=== PATIENT | female | born 1955 | race Caucasian/White ===

== ENCOUNTER → 2018-10-15 10:14 | Outpatient (CLI) | payer OTHER, SELFPAY ==
--- NOTE | 2018-10-15 | DI.MG.S_ITS ---
BILATERAL DIGITAL SCREENING MAMMOGRAM 3D/2D WITH CAD: 10/15/2018 CLINICAL: Routine screening. Family history of breast cancer. Comparison is made to exams dated: 05/20/2017 mammogram, 02/12/2014 mammogram, and 11/11/2012 mammogram - [facility]. The tissue of both breasts is heterogeneously dense. This may lower the sensitivity of mammography. Current study was also evaluated with a Computer Aided Detection (CAD) system. There is 1 cm asymmetry in the left breast anterior depth lateral region seen on the craniocaudal view only. No other significant masses, calcifications, or other findings are seen in either breast. IMPRESSION: INCOMPLETE: NEEDS ADDITIONAL IMAGING EVALUATION The 1 cm asymmetry in the left breast is indeterminate. Additional views with possible ultrasound are recommended. This exam was interpreted at Station ID: [id number]. NOTE: For mammograms, a report in lay terms will be sent to the patient. Approximately 15% of breast malignancies will not be visualized mammographically. In the management of a palpable breast mass, a negative mammogram must not discourage biopsy of a clinically suspicious lesion. Electronically Signed By: Carter Sidhu M.D. at/:10/15/2018 11:45:13 letter sent: Additional Imaging Needed ACR BI-RADS Category 0: Incomplete 3340F
== END ==
PROVIDERS: PCP Naturopath; Visit Provider Naturopath
DX: Z12.31 Encounter for screening mammogram for malignant neoplasm of breast (principal); Z80.3 Family history of malignant neoplasm of breast
CPT/HCPCS: 77063; 77067

== ENCOUNTER → 2018-11-10 09:24 | Outpatient (CLI) | payer OTHER, SELFPAY ==
--- NOTE | 2018-11-10 | DI.MG.S_ITS ---
UNILATERAL LEFT DIGITAL DIAGNOSTIC MAMMOGRAM 3D/2D WITH ADDITIONAL VIEWS: 11/10/2018 CLINICAL: Additional evaluation requested from prior study. Comparison is made to exams dated: 10/15/2018 mammogram, 05/20/2017 mammogram, and 02/12/2014 mammogram - [facility]. The tissue of left breast is heterogeneously dense. This may lower the sensitivity of mammography. The benign 1 cm asymmetry in the left breast anterior depth lateral region seen on the craniocaudal view only is no longer seen on additional views. This is consistent with summation artifact. No other significant masses or calcifications are seen in the breast. IMPRESSION: There is no mammographic evidence of malignancy. A 1 year screening mammogram is recommended. This exam was interpreted at Station ID: [id number]. NOTE: For mammograms, a report in lay terms will be sent to the patient. Approximately 15% of breast malignancies will not be visualized mammographically. In the management of a palpable breast mass, a negative mammogram must not discourage biopsy of a clinically suspicious lesion. Electronically Signed By: Carter yuen/:11/10/2018 10:22:31 letter sent: Normal Exam ACR BI-RADS Category 2: Benign Finding(s) 3342F
== END ==
PROVIDERS: PCP Naturopath; Visit Provider Naturopath
DX: R92.8 Other abnormal and inconclusive findings on diagnostic imaging of breast (principal)
CPT/HCPCS: 77065; G0279

== ENCOUNTER → 2019-07-20 08:06 | Outpatient (CLI) | payer OTHER, SELFPAY ==
--- NOTE | 2019-07-20 | DI.MG.S_ITS ---
BILATERAL DIGITAL DIAGNOSTIC MAMMOGRAM 3D/2D: 07/20/2019 CLINICAL: Bilateral breast pain. Comparison is made to exams dated: 10/15/2018 mammogram, 05/20/2017 mammogram, 02/12/2014 mammogram, 11/10/2018 mammogram, and 11/11/2012 mammogram - [facility]. There are scattered fibroglandular elements in both breasts. Diffuse bilateral breast pain for 2 months duration. No significant masses, calcifications, or other findings are seen in either breast. IMPRESSION: NEGATIVE There is no mammographic evidence of malignancy. No abnormality to correspond to diffuse bilateral breast pain. Return to annual mammogram screening schedule is recommended. Results were conveyed to the patient by the registered sales assistant. This exam was interpreted at Station ID: [id number]. NOTE: For mammograms, a report in lay terms will be sent to the patient. Approximately 15% of breast malignancies will not be visualized mammographically. In the management of a palpable breast mass, a negative mammogram must not discourage biopsy of a clinically suspicious lesion. Electronically Signed By: Juliano Mitchell M.D. slc/:07/20/2019 08:48:55 letter sent: Normal Exam ACR BI-RADS Category 1: Negative 3341F
== END ==
PROVIDERS: PCP Naturopath; Visit Provider Naturopath
DX: N64.4 Mastodynia (principal)
CPT/HCPCS: 77066; G0279

== ENCOUNTER 2019-09-09 15:42 | Emergency (ER) | payer OTHER, SELFPAY ==
[2019-09-09 15:46] VITALS: BP 177/93; PULSE 68; RESP 16; TEMP 36.6; O2SAT 100
[2019-09-09] MEDS: SODIUM CHLORIDE 0.9% 1,000 ML 1000 ML IV (16:10)
[2019-09-09] MEDS: ONDANSETRON 4 MG/2 ML INJ IV (16:11)
[2019-09-09] MEDS: KETOROLAC 60 MG/2 ML VIAL 30 MG IV (16:11)
[2019-09-09 16:15] LABS: Add Manual Diff / Slide Review NO; Basophils Absolute Auto 100 /uL (0-100); Basophils Percent Auto 0.7 % (0-2); Eosinophils Absolute Auto 300 /uL (0-450); Eosinophils Percent Auto 2.9 % (2-4); Hematocrit 43.3 % (36-46); Hemoglobin 14.9 g/dL (12.0-16.0); Lymphocytes Absolute Auto 3300 /uL (1100-4500); Lymphocytes Percent Auto 38.7 % (25-40); Mean Corpuscular HGB Conc 34.5 % (30-36); Mean Corpuscular Hemoglobin 30.3 PG (26-34); Mean Corpuscular Volume 87.9 fL (80-100); Monocytes Absolute Auto 700 /uL (0-900); Monocytes Percent Auto 8.3 % (3-14); Neutrophils Absolute Auto 4300 /uL (1500-7000); Neutrophils Percent Auto 49.4 % (50-75); Platelet Count 229 X10^3/uL (150-400); Red Blood Cell Count 4.92 X10^6/uL (4.0-5.2); Red Cell Distribution Width 13.1 % (11.6-14.8); White Blood Cell Count 8.6 X10^3/uL (4.5-11.0)
[2019-09-09 16:33] LABS: Alanine Aminotransferase 41 IU/L (<35); Albumin 4.8 g/dL (3.5-5.0); Albumin Globulin Ratio 1.4 (1.0-2.8); Alkaline Phosphatase 95 U/L (38-126); Aspartate Aminotransferase 30 IU/L (14-36); BUN Creatinine Ratio 28.8 (6-22); Bilirubin Total 0.9 mg/dL (0.2-1.3); Blood Urea Nitrogen 23 mg/dL (7-17); Carbon Dioxide 26 mmol/L (22-32); Chloride 102 mmol/L (98-107); Estimated Glomerular Filt Rate > 60.0 mL/min (>60); Globulin 3.4 g/dL (1.7-4.1); Glucose 123 mg/dL (80-110); HEMOLYSIS < 15 (0-50); Sodium 139 mmol/L (137-145); Total Protein 8.2 g/dL (6.3-8.2)
[2019-09-09 17:52] VITALS: BP 132/72; PULSE 88; RESP 18; O2SAT 98
--- NOTE | 2019-09-09 18:13 | DI.CT.S_ITS ---
PROCEDURE: CT KIDNEY URETER BLADDER (KUB) INDICATIONS: left flank pain similar to previous kidney stone TECHNIQUE: Noncontrast 5 mm thick sections acquired from the diaphragms to the symphysis. 5 mm thick coronal and sagittal reformats were then performed. For radiation dose reduction, the following was used: automated exposure control, adjustment of mA and/or kV according to patient size. COMPARISON: None. FINDINGS: Image quality: Excellent. Lung bases: Lung bases are clear. Heart size is normal. Urinary system: The right kidney is normal size. No hydronephrosis, nephrolithiasis, hydroureter, or ureterolithiasis. There is mild left hydronephrosis and perinephric fat stranding. A 4 mm nonobstructing stone is present within the left kidney. The ureter is moderately dilated throughout its course with perinephric fat stranding. A 7 mm diameter calculus is present within the distal left ureter (series 2, image 72). The bladder is thin walled. No bladder calculi. The uterus is not visualized and may be surgically absent. The left ovary is not visualized. The right ovary is present with a low density 3.0 cm diameter cyst present. Other solid organs: Liver is normal in size. Gallbladder is surgically absent. Pancreas is normal in contours. Spleen is normal in size. No adrenal nodules. Peritoneum and bowel: Unenhanced bowel loops demonstrate normal wall thickness and caliber. The appendix is not visualized; however there is no discrete right lower quadrant fluid or fat stranding to suggest acute appendicitis. No free fluid or air. Nodes and vessels: No retroperitoneal or mesenteric adenopathy by size criteria. Aorta and inferior vena cava are normal in caliber. Abdominal wall: No ventral hernias. Pelvis: No free pelvic fluid. No inguinal hernias or adenopathy. Bones: No suspicious bony lesions. No vertebral body compression fractures. IMPRESSION: 1. Obstructive left distal ureterolithiasis as above with mild left hydronephrosis and perinephric fat stranding. 2. Nonobstructing left nephrolithiasis. These findings were discussed with Dr. Martinez at 7:13 PM on 09/09/19. Dictated by: Urszula Garg M.D. on 09/09/2019 at 19:10 Approved by: Urszula Garg M.D. on 09/09/2019 at 19:14
[2019-09-09 18:20] VITALS: BP 147/76; PULSE 74; RESP 18; O2SAT 97
[2019-09-09 18:26] LABS: Amorphous Sediment Urine 1+; Bacteria Urine Few (2-10); Culture Indicated Urine Specimen Cultured; Mucus Urine 1+ (Negative); RBC Urine 10-30/HPF (0-5/HPF); Squamous Epithelial Cell Urine 0-1 /HPF (0-5/HPF); Transitional Epi Cells Urine 0-1/HPF (0-5/HPF); WBC Urine 5-10/HPF (0-5/HPF)
[2019-09-09 18:57] VITALS: BP 144/71; PULSE 77; RESP 16; O2SAT 99
--- NOTE | 2019-09-09 20:58 | ED_ITS ---
HPI - Abdominal Pain General Chief Complaint: Abdominal Pain Stated Complaint: states kidney stone Time Seen by Provider: 09/09/19 17:54 Source: patient Mode of arrival: Ambulatory History of Present Illness HPI narrative: The patient is a 64-year-old female who has a past history of kidney stones. She presented to the emergency department with left flank pain that felt identical to her previous kidney stones. The pain is intermittently dull achy and sharp at times. She 1st developed pain on Saturday which was intense but then it resolved on its own. She redeveloped pain on Saturday night which again resolved. Today the patient redeveloped the pain and discomfort. She denies any fever chills or sweats. She denies any other abdominal pain. She has had no chest pain cough shortness of breath difficulty in breathing dizziness or palpitations. She has had no nausea or vomiting at this time. She denies any dysuria urinary frequency or urgency or signs of infection. Related Data Previous Rx's Medication Instructions Recorded metronidazole [MetroCream] 1 jeffrey TOPICAL QDAY #45 gm 02/04/17 ondansetron HCl [Zofran] 4 mg PO Q8H PRN #10 tab 09/09/19 oxycodone-acetaminophen [Percocet] 1 tab PO Q6H PRN #10 tab 09/09/19 Allergies Allergy/AdvReac Type Severity Reaction Status Date / Time epinephrine AdvReac Unknown INCREASED Verified 09/09/19 16:07 HEART RATE Review of Systems Review of Systems Narrative: All review of systems were negative except for those mentioned in the history of present illness. Patient History Surgical History Status post appendectomy Status post delivery Status post cholecystectomy (09/15/03) Status post hysterectomy Family History Brother Age: 70 Heart disease Pacemaker Mother Hypertension High cholesterol Social History other: The patient does not smoke cigarettes or chew tobacco drink alcohol or use Exam Narrative Exam Narrative: PHYSICAL EXAM: CONSTITUTIONAL: Awake, Alert, Oriented, Coherent, Cooperative in NAD after being administered Toradol. . Does not appear toxic or ill. HEAD: AT/NC EENT: PERRL, FROM of eyes, no discharge. No epistaxis or nasal drainage Oral mucosa is moist and pink, posterior pharynx is without erythema or exudate. NECK: Supple, no obvious JVD, Trachea is midline without stridor, no palpable LN or masses. SPINE: No gross deformity, no palpable tenderness of the cervical, thoracic, lumbar or sacral spine. Mild minimal left costovertebral angle tenderness. No right costovertebral angle tenderness. THORAX: No deformity, retractions, chest wall tenderness, LUNGS: Clear with symmetrical breath sounds without respiratory distress HEART: Normal heart tones, regular rhythm and rate without murmur. ABDOMEN: Soft, non-tender, normal bowel sounds without guarding, rebound, rigidity or palpable mass or organomegaly. EXTREMITIES: No edema, cyanosis, deformity or tenderness. SKIN: No rash, bruising, petechiae or purpura. NEURO: Awake, alert, oriented, conversive, cranial nerves II-XII are symmetrical and normal, moves all 4 extremities and is ambulatory Initial Vital Signs Initial Vital Signs: Vital Signs Temperature 97.9 F 09/09/19 15:46 Pulse Rate 68 09/09/19 15:46 Respiratory Rate 16 09/09/19 15:46 Blood Pressure 177/93 H 09/09/19 15:46 Pulse Oximetry 100 09/09/19 15:46 Course Orders Ordered: ED Orders 09/09/19 16:05 Complete Blood Count AUTO DIFF Stat Comprehensive Metabolic Panel Stat 09/09/19 18:06 Urine Culture Stat Urine Microscopic Stat 09/09/19 18:13 CT kidney ureter bladder (KUB) Stat Discontinued Medications Sodium Chloride (Normal Saline 0.9%) 1,000 mls @ 1,000 mls/hr IV BOLUS ONE Stop: 09/09/19 16:51 Last Infusion: 09/09/19 17:49 Dose: 0 mls/hr Documented by: Admin: 09/09/19 16:10 Dose: 1,000 mls/hr Documented by: RUSLAN Ketorolac Tromethamine (Toradol) 30 mg IV NOW ONE Stop: 09/09/19 15:53 Last Admin: 09/09/19 16:11 Dose: 30 mg Documented by: RUSLAN Ondansetron HCl (Zofran) 4 mg IV NOW ONE Stop: 09/09/19 15:53 Last Admin: 01/22/20 16:11 Dose: 4 mg Documented by: RUSLAN Ondansetron HCl (Zofran Odt Prepack) 1 bottle MISC SEEINSTR ONE Stop: 09/09/19 22:22 Last Admin: 09/09/19 22:27 Dose: 1 bottle Documented by: GEORGE Oxycodone/Acetaminophen (Endocet 5/325 Prepack) 1 bottle MISC SEEINSTR ONE Stop: 09/09/19 22:22 Last Admin: 09/09/19 22:27 Dose: 1 bottle Documented by: GEORGE Reevaluation(s) Reevaluation #1: The patient has been pain-free ever since she has been administered Toradol. CT scan reveals that she has mild left hydronephrosis. She has a 7 mm ureteral stone that is partially obstructing. [facility] was called to discuss the patient and arrange follow-up for the patient. Time: 20:58 Vital Signs Vital signs: Vital Signs - 8 hr 09/09/19 15:46 09/09/19 17:52 09/09/19 18:20 Temperature 97.9 F Pulse Rate 68 88 74 Respiratory Rate 16 18 18 Blood Pressure 177/93 H Blood Pressure [Left Arm] 132/72 147/76 H Pulse Oximetry 100 98 97 09/09/19 18:57 09/09/19 22:33 Temperature Pulse Rate 77 62 Respiratory Rate 16 14 Blood Pressure 134/75 Blood Pressure [Left Arm] 144/71 H Pulse Oximetry 99 99 MDM - Abdominal Pain Lab Data Attestation: I reviewed the patient's lab results. Result diagrams: 09/09/19 16:05 09/09/19 16:05 Labs: Lab Results 09/09/19 09/09/19 09/09/19 Range/Units 16:05 16:05 18:06 WBC 8.6 (4.5-11.0) X10^3/uL RBC 4.92 (4.0-5.2) X10^6/uL Hgb 14.9 (12.0-16.0) g/dL Hct 43.3 (36-46) % MCV 87.9 (80-100) fL MCH 30.3 (26-34) PG MCHC 34.5 (30-36) % RDW 13.1 (11.6-14.8) % Plt Count 229 (150-400) X10^3/uL Neut % (Auto) 49.4 L (50-75) % Lymph % (Auto) 38.7 (25-40) % [place] % (Auto) 8.3 (3-14) % Eos % (Auto) 2.9 (2-4) % Baso % (Auto) 0.7 (0-2) % Neut # (Auto) 4300 (9726-6830) /uL Lymph # (Auto) 3300 (2967-0059) /uL [place] # (Auto) 700 (0-900) /uL Eos # (Auto) 300 (0-450) /uL Baso # (Auto) 100 (0-100) /uL Sodium 139 (137-145) mmol/L Potassium 4.0 (3.4-5.1) mmol/L Chloride 102 (98-107) mmol/L Carbon Dioxide 26 (22-32) mmol/L BUN 23 H (7-17) mg/dL Creatinine 0.80 (0.52-1.04) mg/dL Estimated GFR > 60.0 (>60) mL/min BUN/Creatinine Ratio 28.8 H (6-22) Glucose 123 H (80-110) mg/dL Calcium 10.0 (8.4-10.2) mg/dL Total Bilirubin 0.9 (0.2-1.3) mg/dL AST 30 (14-36) IU/L ALT 41 H (<35) IU/L Alkaline Phosphatase 95 (38-126) U/L Total Protein 8.2 (6.3-8.2) g/dL Albumin 4.8 (3.5-5.0) g/dL Globulin 3.4 (1.7-4.1) g/dL Albumin/Globulin Ratio 1.4 (1.0-2.8) Urine RBC 10-30/hpf H (0-5/HPF) Urine WBC 5-10/hpf H (0-5/HPF) Ur Squamous Epith Cells 0-1 /hpf (0-5/HPF) Ur Transition Epith Cell 0-1/hpf (0-5/HPF) Amorphous Sediment 1+ Urine Bacteria Few (2-10) H (None) Urine Mucus 1+ H (Negative) Ur Culture Indicated? Specimen cultured Point of care testing: Urine Dip Bedside Urine Glucose Negative Bedside Urine Bilirubin - Negative Bedside Urine Ketone +/- 5 Urine Specific [place] 1.015 Bedside Urine Occult Blood +++ Bedside Urine pH 7.5 Bedside Urine Protein - Negative Bedside Urine Urobilinogen - Negative Bedside Urine Nitrite - Negative Bedside Urine Leukocytes +/- 15 Esterase MDM Narrative Medical decision making narrative: The patient's CT scan revealed that she had a 7 mm stone with partial obstruction in mild hydronephrosis. A call was placed into Dr. Patel, urologist at [facility]. I discussed the situation with the patient and her and it was decided to discharge her home on Percocet 7.5/325,1 tablet Q 6 hours as needed for severe pain and discomfort. She was advised to return to the emergency department if she develops worsening pain, pain unrelieved by the pain medication, persistent nausea and vomiting fever. Discharge Plan Departure Patient Disposition: Home Clinical Impression: Acute left flank pain, Ureterolithiasis, Ureteral colic Discharge Date/Time: 09/09/19 22:32 Instructions: DI for Kidney Stones, DI for Abdominal Pain-Adult Activity Restrictions/Additional Instructions: If you developed nausea and vomiting use Zofran as prescribed. If you develops recurring abdominal pain take the Percocet for your pain and discomfort. If the Percocet does not control your pain and discomfort return to the emergency department. If you developed fever chills sweats uncontrollable nausea and vomiting dizziness or passing-out you need to return to the emergency department Prescriptions: New oxycodone-acetaminophen [Percocet] 7.5-325 mg tablet 1 tab PO Q6H PRN (Reason: pain) Qty: 10 RF: 0 ondansetron HCl [Zofran] 4 mg tablet 4 mg PO Q8H PRN (Reason: nausea and vomiting) Qty: 10 RF: 0 No Action metronidazole [MetroCream] 0.75 % cream 1 jeffrey Topical QDAY Qty: 45 RF: 0 Referrals: Deisy Cam ND [Primary Care Provider] - Alen Patel MD [Non-Staff] - (Call his office for follow-up for kidney stone.)
[2019-09-09] MEDS: OXYCODONE/APAP 5/325 PREPACK 1 BOTTLE MISC (22:27)
[2019-09-09] MEDS: ONDANSETRON 4 MG ODT PREPACK 1 BOTTLE MISC (22:27)
[2019-09-09 22:33] VITALS: BP 134/75; PULSE 62; RESP 14; O2SAT 99
== END 2019-09-09 22:32 | disposition home or self-care (01) ==
PROVIDERS: Emergency Medicine; Emergency Provider Emergency Medicine; PCP Naturopath
DX: N20.1 Calculus of ureter (principal); Z87.442 Personal history of urinary calculi; N23 Unspecified renal colic
CPT/HCPCS: 36415; 74176; 80053; 81003; 81015; 85025; 87086; 96361; 96374; 96375; 99284; J1885; J2405

== ENCOUNTER 2019-09-14 17:55 | Emergency (ER) | payer OTHER, SELFPAY ==
[2019-09-14 18:00] VITALS: BP 121/73; PULSE 72; RESP 16; TEMP 36.2; O2SAT 100
[2019-09-14] MEDS: ONDANSETRON 4 MG/2 ML INJ IV (18:50)
[2019-09-14] MEDS: KETOROLAC 60 MG/2 ML VIAL 30 MG IV (18:50)
[2019-09-14] MEDS: SODIUM CHLORIDE 0.9% 1,000 ML 500 ML IV (18:51)
[2019-09-14 18:52] VITALS: BP 133/66; PULSE 80; RESP 18; O2SAT 98
[2019-09-14 19:06] LABS: Add Manual Diff / Slide Review NO; Basophils Absolute Auto 200 /uL (0-100); Eosinophils Absolute Auto 400 /uL (0-450); Eosinophils Percent Auto 3.4 % (2-4); Hematocrit 43.7 % (36-46); Hemoglobin 14.9 g/dL (12.0-16.0); Lymphocytes Absolute Auto 3200 /uL (1100-4500); Mean Corpuscular HGB Conc 34.2 % (30-36); Mean Corpuscular Hemoglobin 29.9 PG (26-34); Mean Corpuscular Volume 87.5 fL (80-100); Monocytes Absolute Auto 1100 /uL (0-900); Monocytes Percent Auto 9.6 % (3-14); Neutrophils Absolute Auto 6800 /uL (1500-7000); Platelet Count 256 X10^3/uL (150-400); Red Blood Cell Count 4.99 X10^6/uL (4.0-5.2); Red Cell Distribution Width 13.2 % (11.6-14.8); White Blood Cell Count 11.7 X10^3/uL (4.5-11.0)
[2019-09-14 19:08] LABS: Prothrombin Time 11.1 SECONDS (10.1-12.7)
[2019-09-14 19:10] LABS: PTT Partial Thromboplastin Tim 29 SECONDS (26.4-36.2)
[2019-09-14 19:28] LABS: Alanine Aminotransferase 31 IU/L (<35); Albumin 4.5 g/dL (3.5-5.0); Albumin Globulin Ratio 1.5 (1.0-2.8); Alkaline Phosphatase 81 U/L (38-126); BUN Creatinine Ratio 15.6 (6-22); Bilirubin Total 0.9 mg/dL (0.2-1.3); Blood Urea Nitrogen 14 mg/dL (7-17); Calcium 10.4 mg/dL (8.4-10.2); Carbon Dioxide 23 mmol/L (22-32); Chloride 103 mmol/L (98-107); Estimated Glomerular Filt Rate > 60.0 mL/min (>60); Globulin 3.1 g/dL (1.7-4.1); Glucose 128 mg/dL (80-110); Lipase 159 U/L (23-300); Sodium 138 mmol/L (137-145); Total Protein 7.6 g/dL (6.3-8.2)
[2019-09-14 19:32] LABS: HEMOLYSIS 117 (0-50)
--- NOTE | 2019-09-14 19:36 | ED_ITS ---
HPI - General Adult General Chief complaint: Abdominal Pain Stated complaint: KIDNEY STONE PAIN 10 Time Seen by Provider: 09/14/19 19:19 Source: patient Mode of arrival: Ambulatory Limitations: no limitations History of Present Illness HPI narrative: Patient is a 64-year-old female who was seen here in the emergency department just a few days ago was diagnosed with a distal 7 mm left- sided ureteral stone. Was sent home with pain medication and nausea medication. According to the note a couple days ago the evaluating provider talked with local Urology about a follow-up as an outpatient. Patient states that she has not followed up with them. She states that it was under her understanding during her last visit that she needed admitted to the hospital however there was no bed availability so she was discharged home. She states she has not taking any of the pain or nausea medication that she was given at that time until today because the pain got worse. No fevers. Related Data Home Medications Medication Instructions Recorded Confirmed metronidazole [MetroCream] 1 jeffrey TOPICAL DAILY 09/14/19 09/14/19 Previous Rx's Medication Instructions Recorded ondansetron HCl [Zofran] 4 mg PO Q8H PRN #10 tab 09/09/19 oxycodone-acetaminophen [Percocet] 1 tab PO Q6H PRN #10 tab 09/09/19 tamsulosin [Flomax] 0.4 mg PO DAILY #14 cap 09/14/19 Allergies Allergy/AdvReac Type Severity Reaction Status Date / Time epinephrine AdvReac Unknown INCREASED Verified 09/09/19 16:07 HEART RATE Review of Systems Constitutional Constitutional: Denies fever(s) Cardiovascular Cardiovascular: Denies chest pain and Denies dyspnea Respiratory Respiratory: Denies dyspnea Gastrointestinal Gastrointestinal: Reports abdominal pain, Reports nausea and Denies vomiting Integumentary/Breasts Skin/Breast: Denies lesions and Denies rash Neurologic Neurologic: Denies behavioral changes Psychiatric Psychiatric: Denies behavioral changes Hematologic/Lymphatic Hematologic/Lymphatic: Denies easy bleeding and Denies easy bruising Patient History Medical History Hyperlipidemia (11/02/14) Rosacea (10/20/14) Surgical History Status post appendectomy Status post delivery Status post cholecystectomy (09/15/03) Status post hysterectomy Social History other: The patient does not smoke cigarettes or chew tobacco drink alcohol or use Exam Initial Vital Signs Initial Vital Signs: Vital Signs Temperature 97.2 F L 09/14/19 18:00 Pulse Rate 72 09/14/19 18:00 Respiratory Rate 16 09/14/19 18:00 Blood Pressure 121/73 09/14/19 18:00 Pulse Oximetry 100 09/14/19 18:00 Const General: cooperative and comfortable Limitations: mental status not altered HENMT Head: normal to inspection and normocephalic Resp Effort & Inspection: normal respiratory effort Cardio Rate: regular rate GI Inspection: non-distended Skin Lesions: no lesions Rashes: no rashes Neuro General: alert and awake Cognition: normal cognition Speech: speech normal Extrem General: normal to inspection and No edema Course Orders Ordered: ED Orders 09/14/19 18:55 Complete Blood Count AUTO DIFF Stat Comprehensive Metabolic Panel Stat Lipase Stat Partial Thromboplastin Time Stat Prothrombin Time INR Stat 09/14/19 19:09 Urine Microscopic Stat Discontinued Medications Sodium Chloride (Normal Saline 0.9%) 1,000 mls @ 500 mls/hr IV BOLUS ONE Stop: 09/14/19 20:45 Last Infusion: 09/14/19 20:23 Dose: 0 mls/hr Documented by: Infusion: 09/14/19 19:50 Dose: 1,000 mls/hr Documented by: Admin: 09/14/19 18:51 Dose: 500 mls/hr Documented by: RUSLAN Ketorolac Tromethamine (Toradol) 30 mg IV NOW ONE Stop: 09/14/19 18:48 Last Admin: 09/14/19 18:50 Dose: 30 mg Documented by: RUSLAN Ondansetron HCl (Zofran) 4 mg IV NOW ONE Stop: 09/14/19 18:46 Last Admin: 09/14/19 18:50 Dose: 4 mg Documented by: RUSLAN Vital Signs Vital signs: Vital Signs - 8 hr 09/14/19 18:00 09/14/19 18:52 09/14/19 20:54 Temperature 97.2 F L Pulse Rate 72 80 62 Respiratory Rate 16 18 16 Blood Pressure 121/73 Blood Pressure [Right Arm] 133/66 122/78 Pulse Oximetry 100 98 99 Medical Decision Making Lab Data Lab results reviewed: Yes I reviewed the patient's lab results. Result diagrams: 09/14/19 18:55 09/14/19 18:55 Labs: Lab Results 09/14/19 09/14/19 09/14/19 Range/Units 18:55 18:55 18:55 WBC 11.7 H (4.5-11.0) X10^3/uL RBC 4.99 (4.0-5.2) X10^6/uL Hgb 14.9 (12.0-16.0) g/dL Hct 43.7 (36-46) % MCV 87.5 (80-100) fL MCH 29.9 (26-34) PG MCHC 34.2 (30-36) % RDW 13.2 (11.6-14.8) % Plt Count 256 (150-400) X10^3/uL Neut % (Auto) 58.0 (50-75) % Lymph % (Auto) 27.0 (25-40) % [place] % (Auto) 9.6 (3-14) % Eos % (Auto) 3.4 (2-4) % Baso % (Auto) 2.0 (0-2) % Neut # (Auto) 6800 (3327-6695) /uL Lymph # (Auto) 3200 (3511-3396) /uL [place] # (Auto) 1100 H (0-900) /uL Eos # (Auto) 400 (0-450) /uL Baso # (Auto) 200 H (0-100) /uL PT 11.1 (10.1-12.7) SECONDS INR 1.0 (0.9-1.3) APTT 29 (26.4-36.2) SECONDS Sodium 138 (137-145) mmol/L Potassium TNP Chloride 103 (98-107) mmol/L Carbon Dioxide 23 (22-32) mmol/L BUN 14 (7-17) mg/dL Creatinine 0.90 (0.52-1.04) mg/dL Estimated GFR > 60.0 (>60) mL/min BUN/Creatinine Ratio 15.6 (6-22) Glucose 128 H (80-110) mg/dL Calcium 10.4 H (8.4-10.2) mg/dL Total Bilirubin 0.9 (0.2-1.3) mg/dL AST TNP ALT 31 (<35) IU/L Alkaline Phosphatase 81 (38-126) U/L Total Protein 7.6 (6.3-8.2) g/dL Albumin 4.5 (3.5-5.0) g/dL Globulin 3.1 (1.7-4.1) g/dL Albumin/Globulin Ratio 1.5 (1.0-2.8) Lipase 159 (23-300) U/L Urine RBC (0-5/HPF) Urine WBC (0-5/HPF) Ur Squamous Epith Cells (0-5/HPF) Urine Bacteria (None) Ur Culture Indicated? Micro UA Comment 09/14/19 Range/Units 19:09 WBC (4.5-11.0) X10^3/uL RBC (4.0-5.2) X10^6/uL Hgb (12.0-16.0) g/dL Hct (36-46) % MCV (80-100) fL MCH (26-34) PG MCHC (30-36) % RDW (11.6-14.8) % Plt Count (150-400) X10^3/uL Neut % (Auto) (50-75) % Lymph % (Auto) (25-40) % [place] % (Auto) (3-14) % Eos % (Auto) (2-4) % Baso % (Auto) (0-2) % Neut # (Auto) (1510-5683) /uL Lymph # (Auto) (0750-6301) /uL [place] # (Auto) (0-900) /uL Eos # (Auto) (0-450) /uL Baso # (Auto) (0-100) /uL PT (10.1-12.7) SECONDS INR (0.9-1.3) APTT (26.4-36.2) SECONDS Sodium (137-145) mmol/L Potassium Chloride (98-107) mmol/L Carbon Dioxide (22-32) mmol/L BUN (7-17) mg/dL Creatinine (0.52-1.04) mg/dL Estimated GFR (>60) mL/min BUN/Creatinine Ratio (6-22) Glucose (80-110) mg/dL Calcium (8.4-10.2) mg/dL Total Bilirubin (0.2-1.3) mg/dL AST ALT (<35) IU/L Alkaline Phosphatase (38-126) U/L Total Protein (6.3-8.2) g/dL Albumin (3.5-5.0) g/dL Globulin (1.7-4.1) g/dL Albumin/Globulin Ratio (1.0-2.8) Lipase (23-300) U/L Urine RBC None seen (0-5/HPF) Urine WBC 0-1/hpf (0-5/HPF) Ur Squamous Epith Cells 0-1 /hpf (0-5/HPF) Urine Bacteria None seen (None) Ur Culture Indicated? Cult not indicated Micro UA Comment Microscopic normal Urine Dip Bedside Urine Glucose Negative Bedside Urine Bilirubin - Negative Bedside Urine Ketone - Negative Urine Specific [place] 1.010 Bedside Urine Occult Blood + Bedside Urine pH 8.0 Bedside Urine Protein - Negative Bedside Urine Urobilinogen - Negative Bedside Urine Nitrite - Negative Bedside Urine Leukocytes +/- 15 Esterase Point of care testing: Urine Dip Bedside Urine Glucose Negative Bedside Urine Bilirubin - Negative Bedside Urine Ketone - Negative Urine Specific [place] 1.010 Bedside Urine Occult Blood + Bedside Urine pH 8.0 Bedside Urine Protein - Negative Bedside Urine Urobilinogen - Negative Bedside Urine Nitrite - Negative Bedside Urine Leukocytes +/- 15 Esterase MDM Narrative Medical decision making narrative: Patient has a known left-sided ureteral stone. Her creatinine today is unremarkable. She has no signs of a urinary tract infection. Has not taken any of her pain medication at home until today. Review of the patient's no did show a 7 mm left-sided obstructing ureteral stone. Patient has not been vomiting here in the ER. Given the size of the stone will start her on Flomax. I feel that she does not need emergent urologic consultation. She was given the phone number for the local urology group. She was given return precautions and follow-up instructions. I do believe that the patient thought that her visit today would result and admission to the hospital for this however tried to inform them that given her clinical presentation that Urology would likely allow her to try to pass the stone on her own. Patient is nontoxic appearing. Is not septic. We did discuss return precautions. She expressed understanding. Discharge Plan Departure Patient Disposition: Home Clinical Impression: Renal colic on left side Discharge Date/Time: 09/14/19 20:55 Instructions: DI for Kidney Stones Activity Restrictions/Additional Instructions: Take all the medications as directed. Recommend tomorrow you call the [facility] roberto group at [phone]. Return to the emergency department for any new or worsening symptoms Prescriptions: New tamsulosin [Flomax] 0.4 mg capsule 0.4 mg PO DAILY Qty: 14 RF: 0 No Action metronidazole [MetroCream] 0.75 % cream 1 jeffrey Topical DAILY RF: 0 oxycodone-acetaminophen [Percocet] 7.5-325 mg tablet 1 tab PO Q6H PRN (Reason: pain) Qty: 10 RF: 0 ondansetron HCl [Zofran] 4 mg tablet 4 mg PO Q8H PRN (Reason: nausea and vomiting) Qty: 10 RF: 0 Referrals: Deisy Cam ND [Primary Care Provider] -
[2019-09-14 19:52] LABS: Bacteria Urine None Seen; RBC Urine None Seen (0-5/HPF)
[2019-09-14 19:59] LABS: Culture Indicated Urine Cult Not Indicated; Squamous Epithelial Cell Urine 0-1 /HPF (0-5/HPF); Urine Comments Microscopic Normal; WBC Urine 0-1/HPF (0-5/HPF)
[2019-09-14 20:54] VITALS: BP 122/78; PULSE 62; RESP 16; O2SAT 99
== END 2019-09-14 20:55 | disposition home or self-care (01) ==
PROVIDERS: Emergency Provider Emergency Medicine; PCP Naturopath
DX: N23 Unspecified renal colic (principal); Z87.442 Personal history of urinary calculi
CPT/HCPCS: 80053; 81003; 81015; 83690; 85025; 85610; 85730; 96361; 96374; 96375; 99284; J1885; J2405

== ENCOUNTER 2019-09-27 15:14 | Emergency (ER) | payer OTHER, SELFPAY ==
[2019-09-27 15:26] VITALS: BP 146/79; PULSE 66; RESP 16; TEMP 36.8; O2SAT 96
--- NOTE | 2019-09-27 16:34 | ED_ITS ---
HPI - Extremity Injury (Upper) <HARMEET Andrade - Last Filed: 09/27/19 21:22> General Chief Complaint: Extremity Injury, Upper Stated Complaint: Both Arm and Juggular Vein Pain Time Seen by Provider: 09/27/19 16:13 Source: patient Mode of arrival: Ambulatory History of Present Illness HPI narrative: 64yo female presents to the emergency department complaining of bilateral arm pain that radiates up to her. She states she was in the emergency department on 09/09 and 09/14 and treated for renal calculi. Patient states she had multiple IV starts some were successful and some were not. Patient states 3 days ago she developed a right-sided aching in her arm in her antecubital area, she states this is exactly where they struck my IV the pain subsided the next day but today it has worsened and her left arm is aching where she was stuck for a blood draw. He states it occasionally radiates up her neck. The pain is worse when she moves her arms and particularly bends her elbows. She denies any alleviating factors. She denies any other symptoms such as chest pain, shortness of breath, dizziness, nausea, vomiting, diarrhea, or other concerns. She states she still has some minor pain from her kidney stone but this is getting better. Related Data Home Medications Medication Instructions Recorded Confirmed metronidazole [MetroCream] 1 jeffrey TOPICAL DAILY 09/14/19 09/14/19 Previous Rx's Medication Instructions Recorded ondansetron HCl [Zofran] 4 mg PO Q8H PRN #10 tab 09/09/19 oxycodone-acetaminophen [Percocet] 1 tab PO Q6H PRN #10 tab 09/09/19 tamsulosin [Flomax] 0.4 mg PO DAILY #14 cap 09/14/19 Allergies Allergy/AdvReac Type Severity Reaction Status Date / Time epinephrine AdvReac Unknown INCREASED Verified 09/09/19 16:07 HEART RATE Review of Systems <HARMEET Andrade - Last Filed: 09/27/19 21:22> Review of Systems Narrative: REVIEW OF SYSTEMS: GENERAL: Denies fever or chills. HENT: No head trauma. EYES: No double vision or vision loss. CARDIOVASCULAR: No chest pain or syncope. RESPIRATORY: No shortness of breath or cough. GASTROINTESTINAL: No nausea, vomiting, diarrhea, or constipation. GENITOURINARY: No flank pain or dysuria. MUSCULOSKELETAL: Complains of right and left arm pain, see HPI. INTEGUMENTARY: No rash, lesions, or pruritus. NEURO: No numbness, tingling. PSYCH: No behavior or mood changes. Patient History <HARMEET Andrade - Last Filed: 09/27/19 21:22> Medical History Hyperlipidemia (11/02/14) Rosacea (10/20/14) Surgical History Status post appendectomy Status post delivery Status post cholecystectomy (09/15/03) Status post hysterectomy Family History Brother Age: 70 Heart disease Pacemaker Mother Hypertension High cholesterol Social History other: The patient does not smoke cigarettes or chew tobacco drink alcohol or use Exam <HARMEET Andrade - Last Filed: 09/27/19 21:22> Initial Vital Signs Initial Vital Signs: Vital Signs Temperature 98.2 F 09/27/19 15:26 Pulse Rate 66 09/27/19 15:26 Respiratory Rate 16 09/27/19 15:26 Blood Pressure 146/79 H 09/27/19 15:26 Pulse Oximetry 96 09/27/19 15:26 PHYSICAL EXAMINATION: GENERAL: Well groomed, alert, and cooperative. Answers questions promptly and appropriately. Vital signs noted. HENT: Normocephalic, atraumatic. EYES: Symmetrical, sclera white, no periorbital swelling. CARDIOVASCULAR: S1 and S2 sounds normal. Regular rate and rhythm, no murmurs, clicks, or bruits. No pedal edema. RESPIRATORY: Normal respiratory rate, trachea midline, airway patent. No stridor, nasal flaring or accessory muscle use. Lungs are clear in all hendrix. MUSCULOSKELETAL: Tenderness to palpation of antecubital region, pain was reproduced when bending arms. No lesions, lumps, erythema, or swelling. 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 No shoulder pain, wrist pain, or neck pain. Normal gait and coordination. Equal tone and mass bilaterally. No spinal tenderness or deformities. EXTREMITIES: CMS intact. Radial pulses 2+ and equal bilaterally. SKIN: Warm, dry, soft, appropriate color for ethnicity. No lesions, rashes, or wounds. NEURO: Alert and Oriented X 3. No sensory deficits. PSYCH: Appropriate affect and mood. <Remy Mancera DO - Last Filed: 09/30/19 03:19> Initial Vital Signs Initial Vital Signs: Vital Signs Temperature 98.2 F 09/27/19 15:26 Pulse Rate 66 09/27/19 15:26 Respiratory Rate 16 09/27/19 15:26 Blood Pressure 146/79 H 09/27/19 15:26 Pulse Oximetry 96 09/27/19 15:26 Scores <HARMEET Andrade - Last Filed: 09/27/19 21:22> HEART Score Heart Score history: Slightly Suspicious Heart Score EKG: Normal Heart Score Age: > or = 65 years old Heart Score risk factors: No known risk factors Heart Score troponin: < or = to normal limit Heart Score Total: 2 Wells' Criteria for PE Clinical signs and symptoms of DVT: No PE is #1 Dx or equally likely: No Heart rate > 100: No Immobilization at least 3 days or surg in previous 4 weeks: No History of PE or DVT: No Hemoptysis: No Malignancy w/Treatment within 6 months or palliative: No Wells' PE Score total: 0 Course <HARMEET Andrade - Last Filed: 09/27/19 21:22> Course Course Narrative: Patient reported decreased pain during emergency department stay. She remained hemodynamically stable without any acute changes. Orders Ordered: ED Orders 09/27/19 16:12 EKG-12 Lead Routine 09/27/19 16:36 XR chest 1V Stat C-Reactive Protein Quant Stat Complete Blood Count AUTO DIFF Stat Comprehensive Metabolic Panel Stat Erythrocyte Sedimentation Rate Stat Trop I [Troponin I] Stat Consultations Consultation #1: Patient staffed with Dr. Mancera. Vital Signs Vital signs: Vital Signs - 8 hr 09/27/19 15:26 09/27/19 17:00 09/27/19 17:30 Temperature 98.2 F Pulse Rate 66 77 71 Respiratory Rate 16 16 15 Blood Pressure 146/79 H Blood Pressure [Left Arm] 158/83 H 147/75 H Pulse Oximetry 96 97 95 <Remy Mancera DO - Last Filed: 09/30/19 03:19> Orders Ordered: ED Orders 09/27/19 16:12 EKG-12 Lead Routine 09/27/19 16:36 XR chest 1V Stat C-Reactive Protein Quant Stat Complete Blood Count AUTO DIFF Stat Comprehensive Metabolic Panel Stat Erythrocyte Sedimentation Rate Stat Trop I [Troponin I] Stat Vital Signs Vital signs: Vital Signs - 8 hr 09/27/19 15:26 09/27/19 17:00 09/27/19 17:30 Temperature 98.2 F Pulse Rate 66 77 71 Respiratory Rate 16 16 15 Blood Pressure 146/79 H Blood Pressure [Left Arm] 158/83 H 147/75 H Pulse Oximetry 96 97 95 MDM - Extremity Injury (Upper) <HARMEET Andrade - Last Filed: 09/27/19 21:22> Medical Records Attestation: I reviewed the patient's medical records. Lab Data Attestation: I reviewed the patient's lab results. Result diagrams: 09/27/19 16:36 09/27/19 16:36 Labs: Lab Results 09/27/19 09/27/19 09/27/19 Range/Units 16:36 16:36 16:36 WBC 9.9 (4.5-11.0) X10^3/uL RBC 4.73 (4.0-5.2) X10^6/uL Hgb 14.1 (12.0-16.0) g/dL Hct 41.4 (36-46) % MCV 87.5 (80-100) fL MCH 29.8 (26-34) PG MCHC 34.1 (30-36) % RDW 13.2 (11.6-14.8) % Plt Count 257 (150-400) X10^3/uL Neut % (Auto) 62.1 (50-75) % Lymph % (Auto) 25.7 (25-40) % [place] % (Auto) 8.0 (3-14) % Eos % (Auto) 3.9 (2-4) % Baso % (Auto) 0.3 (0-2) % Neut # (Auto) 6200 (6693-0828) /uL Lymph # (Auto) 2600 (4162-6585) /uL [place] # (Auto) 800 (0-900) /uL Eos # (Auto) 400 (0-450) /uL Baso # (Auto) 0 (0-100) /uL ESR 10 (0-20) MM/HR Sodium 144 (137-145) mmol/L Potassium 4.0 (3.4-5.1) mmol/L Chloride 105 (98-107) mmol/L Carbon Dioxide 30 (22-32) mmol/L BUN 16 (7-17) mg/dL Creatinine 0.70 (0.52-1.04) mg/dL Estimated GFR > 60.0 (>60) mL/min BUN/Creatinine Ratio 22.9 H (6-22) Glucose 112 H (80-110) mg/dL Calcium 9.5 (8.4-10.2) mg/dL Total Bilirubin 0.7 (0.2-1.3) mg/dL AST 25 (14-36) IU/L ALT 37 H (<35) IU/L Alkaline Phosphatase 82 (38-126) U/L Troponin I < 0.012 (0.01-0.034) ng/mL C-Reactive Protein (<1.0) mg/dL Total Protein 7.5 (6.3-8.2) g/dL Albumin 4.4 (3.5-5.0) g/dL Globulin 3.1 (1.7-4.1) g/dL Albumin/Globulin Ratio 1.4 (1.0-2.8) 09/27/19 Range/Units 16:36 WBC (4.5-11.0) X10^3/uL RBC (4.0-5.2) X10^6/uL Hgb (12.0-16.0) g/dL Hct (36-46) % MCV (80-100) fL MCH (26-34) PG MCHC (30-36) % RDW (11.6-14.8) % Plt Count (150-400) X10^3/uL Neut % (Auto) (50-75) % Lymph % (Auto) (25-40) % Denton % (Auto) (3-14) % Eos % (Auto) (2-4) % Baso % (Auto) (0-2) % Neut # (Auto) (5054-1756) /uL Lymph # (Auto) (7842-8600) /uL Denton # (Auto) (0-900) /uL Eos # (Auto) (0-450) /uL Baso # (Auto) (0-100) /uL ESR (0-20) MM/HR Sodium (137-145) mmol/L Potassium (3.4-5.1) mmol/L Chloride (98-107) mmol/L Carbon Dioxide (22-32) mmol/L BUN (7-17) mg/dL Creatinine (0.52-1.04) mg/dL Estimated GFR (>60) mL/min BUN/Creatinine Ratio (6-22) Glucose (80-110) mg/dL Calcium (8.4-10.2) mg/dL Total Bilirubin (0.2-1.3) mg/dL AST (14-36) IU/L ALT (<35) IU/L Alkaline Phosphatase (38-126) U/L Troponin I (0.01-0.034) ng/mL C-Reactive Protein 0.8 (<1.0) mg/dL Total Protein (6.3-8.2) g/dL Albumin (3.5-5.0) g/dL Globulin (1.7-4.1) g/dL Albumin/Globulin Ratio (1.0-2.8) Imaging Data Chest x-ray: Radiologist's Impression: [address] [address] XRay Report Signed Patient: Ira Tellez LMR#: [id number] : 6Acct:[id number] Age/Sex: 64 / FDate of Service: 09/27/19 Loc: ED Accession Number: [id number] Procedure: XR chest 1V Ordering Provider: Keely Felton PROCEDURE: XR CHEST 1V INDICATIONS: chest pain TECHNIQUE: One view of the chest was acquired. COMPARISON: [facility], , CHEST 2 VIEW, 04/14/2008, 12:48. FINDINGS: Surgical changes and devices: None. Lungs and pleura: No definite consolidation is appreciated. However, there is vaguely increased density identified at the right lung base with slight elevation of the right diaphragm. No effusion or pneumothorax is evident. Mediastinum: Mediastinal contours appear normal. Heart size is normal. Bones and chest wall: No suspicious bony lesions. Overlying soft tissues appear unremarkable. IMPRESSION: Vague increased density at the right lung base may be within normal limits. Please correlate clinically to exclude pneumonia. Dictated by: David Pacheco M.D. on 09/27/2019 at 16:08 Approved by: David Pacheco M.D. on 09/27/2019 at 16:09 ECG Data Interpretation: Sinus rhythm, rate 74, DC interval 163, QTC 407. No ST elevation or ST depression. No T-wave abnormality. No ectopy. EKG viewed by Dr. Mancera per protocol. MDM Narrative Medical decision making narrative: 64-year-old female presenting for right-sided axillary pain that developed into left-sided axillary pain, this appears muscle skeletal in nature due to reproduction of pain with movement and palpation and lack of other concerning findings. Chest x-ray does show a density in the lower lobes and radiologist differential included normal variation versus pneumonia. Less likely pneumonia due to lack of shortness of breath, cough or systemic symptoms such as fevers or chills. Less likely blood clot due to lack of swelling, erythema, induration, or decreased CMS as well as pain occurring and both arms, pain reproducible on palpation, and pain worse with bending elbows. Less likely inflammatory condition such as RA due to normal inflammatory markers and lack of redness or swelling. Less likely cardiac in nature due to lack of chest pain, shortness of breath, reproduction of pain with movement and palpation, normal cardiac enzymes, non remarkable EKG, and non concerning chest x-ray. Patient was encouraged to follow up with her primary care provider in the next few weeks. Strict return precautions given for new or worsening symptoms. Patient agreed with plan of care verbalized understanding. <Remy Mancera, DO - Last Filed: 09/30/19 03:19> Lab Data Labs: Lab Results 09/27/19 09/27/19 09/27/19 Range/Units 16:36 16:36 16:36 WBC 9.9 (4.5-11.0) X10^3/uL RBC 4.73 (4.0-5.2) X10^6/uL Hgb 14.1 (12.0-16.0) g/dL Hct 41.4 (36-46) % MCV 87.5 (80-100) fL MCH 29.8 (26-34) PG MCHC 34.1 (30-36) % RDW 13.2 (11.6-14.8) % Plt Count 257 (150-400) X10^3/uL Neut % (Auto) 62.1 (50-75) % Lymph % (Auto) 25.7 (25-40) % Denton % (Auto) 8.0 (3-14) % Eos % (Auto) 3.9 (2-4) % Baso % (Auto) 0.3 (0-2) % Neut # (Auto) 6200 (7738-8939) /uL Lymph # (Auto) 2600 (2951-1512) /uL Denton # (Auto) 800 (0-900) /uL Eos # (Auto) 400 (0-450) /uL Baso # (Auto) 0 (0-100) /uL ESR 10 (0-20) MM/HR Sodium 144 (137-145) mmol/L Potassium 4.0 (3.4-5.1) mmol/L Chloride 105 (98-107) mmol/L Carbon Dioxide 30 (22-32) mmol/L BUN 16 (7-17) mg/dL Creatinine 0.70 (0.52-1.04) mg/dL Estimated GFR > 60.0 (>60) mL/min BUN/Creatinine Ratio 22.9 H (6-22) Glucose 112 H (80-110) mg/dL Calcium 9.5 (8.4-10.2) mg/dL Total Bilirubin 0.7 (0.2-1.3) mg/dL AST 25 (14-36) IU/L ALT 37 H (<35) IU/L Alkaline Phosphatase 82 (38-126) U/L Troponin I < 0.012 (0.01-0.034) ng/mL C-Reactive Protein (<1.0) mg/dL Total Protein 7.5 (6.3-8.2) g/dL Albumin 4.4 (3.5-5.0) g/dL Globulin 3.1 (1.7-4.1) g/dL Albumin/Globulin Ratio 1.4 (1.0-2.8) 09/27/19 Range/Units 16:36 WBC (4.5-11.0) X10^3/uL RBC (4.0-5.2) X10^6/uL Hgb (12.0-16.0) g/dL Hct (36-46) % MCV (80-100) fL MCH (26-34) PG MCHC (30-36) % RDW (11.6-14.8) % Plt Count (150-400) X10^3/uL Neut % (Auto) (50-75) % Lymph % (Auto) (25-40) % Denton % (Auto) (3-14) % Eos % (Auto) (2-4) % Baso % (Auto) (0-2) % Neut # (Auto) (2151-7053) /uL Lymph # (Auto) (7182-9262) /uL Denton # (Auto) (0-900) /uL Eos # (Auto) (0-450) /uL Baso # (Auto) (0-100) /uL ESR (0-20) MM/HR Sodium (137-145) mmol/L Potassium (3.4-5.1) mmol/L Chloride (98-107) mmol/L Carbon Dioxide (22-32) mmol/L BUN (7-17) mg/dL Creatinine (0.52-1.04) mg/dL Estimated GFR (>60) mL/min BUN/Creatinine Ratio (6-22) Glucose (80-110) mg/dL Calcium (8.4-10.2) mg/dL Total Bilirubin (0.2-1.3) mg/dL AST (14-36) IU/L ALT (<35) IU/L Alkaline Phosphatase (38-126) U/L Troponin I (0.01-0.034) ng/mL C-Reactive Protein 0.8 (<1.0) mg/dL Total Protein (6.3-8.2) g/dL Albumin (3.5-5.0) g/dL Globulin (1.7-4.1) g/dL Albumin/Globulin Ratio (1.0-2.8) Discharge Plan Departure Patient Disposition: Home Clinical Impression: Arm pain Qualifiers: Laterality: bilateral Qualified Code(s): M79.601 - Pain in right arm Discharge Date/Time: 09/27/19 17:57 Activity Restrictions/Additional Instructions: Thank you for entrusting me with your care today. As discussed, your x-ray, laboratory work, and EKG are non-remarkable. I am unsure the exact cause of your arm pain. This may be related to nerve pain from previous back or neck injuries, a medication interaction, or muscle strain. I suggest ibuprofen, Tylenol, massage, gentle stretches, and gentle use severe arms to help with pain. Follow-up with your primary care provider in 1-2 weeks for further evaluation and further testing if needed. Return emergency department for new or worsening symptoms such as chest pain, shortness of breath, high fevers, or other concerns. Prescriptions: No Action metronidazole [MetroCream] 0.75 % cream 1 jeffrey Topical DAILY RF: 0 tamsulosin [Flomax] 0.4 mg capsule 0.4 mg PO DAILY Qty: 14 RF: 0 oxycodone-acetaminophen [Percocet] 7.5-325 mg tablet 1 tab PO Q6H PRN (Reason: pain) Qty: 10 RF: 0 ondansetron HCl [Zofran] 4 mg tablet 4 mg PO Q8H PRN (Reason: nausea and vomiting) Qty: 10 RF: 0 Referrals: Deisy Cam ND [Primary Care Provider] -
[2019-09-27 16:49] LABS: Add Manual Diff / Slide Review NO; Basophils Absolute Auto 0 /uL (0-100); Basophils Percent Auto 0.3 % (0-2); Eosinophils Absolute Auto 400 /uL (0-450); Eosinophils Percent Auto 3.9 % (2-4); Hematocrit 41.4 % (36-46); Hemoglobin 14.1 g/dL (12.0-16.0); Lymphocytes Absolute Auto 2600 /uL (1100-4500); Lymphocytes Percent Auto 25.7 % (25-40); Mean Corpuscular HGB Conc 34.1 % (30-36); Mean Corpuscular Hemoglobin 29.8 PG (26-34); Mean Corpuscular Volume 87.5 fL (80-100); Monocytes Absolute Auto 800 /uL (0-900); Neutrophils Absolute Auto 6200 /uL (1500-7000); Neutrophils Percent Auto 62.1 % (50-75); Platelet Count 257 X10^3/uL (150-400); Red Blood Cell Count 4.73 X10^6/uL (4.0-5.2); Red Cell Distribution Width 13.2 % (11.6-14.8); White Blood Cell Count 9.9 X10^3/uL (4.5-11.0)
[2019-09-27 16:55] LABS: Alanine Aminotransferase 37 IU/L (<35); Albumin 4.4 g/dL (3.5-5.0); Albumin Globulin Ratio 1.4 (1.0-2.8); Alkaline Phosphatase 82 U/L (38-126); Aspartate Aminotransferase 25 IU/L (14-36); BUN Creatinine Ratio 22.9 (6-22); Bilirubin Total 0.7 mg/dL (0.2-1.3); Blood Urea Nitrogen 16 mg/dL (7-17); Calcium 9.5 mg/dL (8.4-10.2); Carbon Dioxide 30 mmol/L (22-32); Chloride 105 mmol/L (98-107); Estimated Glomerular Filt Rate > 60.0 mL/min (>60); Globulin 3.1 g/dL (1.7-4.1); Glucose 112 mg/dL (80-110); HEMOLYSIS < 15 (0-50); Sodium 144 mmol/L (137-145); Total Protein 7.5 g/dL (6.3-8.2)
[2019-09-27 16:59] LABS: C-Reactive Protein Quant 0.8 mg/dL (<1.0)
[2019-09-27 17:00] VITALS: BP 158/83; PULSE 77; RESP 16; O2SAT 97
--- NOTE | 2019-09-27 17:05 | PC.NURSE ---
reports bilateral arm pain since rosio, radiating up to her bilateral neck, denies trauma,fever,vomiting or diarrhea. hx of kidney stones and , states, discomfort from all the iv starts.
[2019-09-27 17:06] LABS: Troponin I < 0.012 ng/mL (0.01-0.034)
[2019-09-27 17:11] LABS: Erythrocyte Sedimentation Rate 10 MM/HR (0-20)
[2019-09-27 17:30] VITALS: BP 147/75; PULSE 71; RESP 15; O2SAT 95
== END 2019-09-27 17:57 | disposition home or self-care (01) ==
PROVIDERS: Emergency Medicine; Emergency Provider Nurse Practitioner; PCP Naturopath
DX: M79.601 Pain in right arm (principal); R07.9 Chest pain, unspecified
CPT/HCPCS: 36415; 71045; 80053; 84484; 85025; 85651; 86140; 93005; 99283; 99285

== ENCOUNTER → 2020-08-05 11:20 | Outpatient (CLI) | payer OTHER, SELFPAY ==
--- NOTE | 2020-08-05 | DI.MRI.S_ITS ---
PROCEDURE: MR HEAD/BRAIN WO CON INDICATIONS: symptoms and signs involving cognitive function TECHNIQUE: Non-contrast axial T1 spin echo, axial T2 fast spin echo, sagittal and axial FLAIR, coronal T2 fast spin echo, axial gradient echo, axial diffusion and ADC through the brain. COMPARISON: None. FINDINGS: Image quality: Excellent. CSF spaces: Ventricles appear symmetric in size and shape. Basal cisterns are patent. No extra-axial fluid collections. Brain: No intracranial bleeds or mass effects. There is mild cerebral volume loss for age. There are mild periventricular and deep white matter chronic small vessel ischemic changes. Brainstem appears normal. Diffusion-weighted images show no acute ischemic insults. No chronic ischemic insults. Normal intravascular flow voids are present. Skull and face: Calvarial bone marrow is normal in signal. Orbits are normal. Sinuses: Sinuses and mastoids are clear. IMPRESSION: 1. No acute intracranial disease process. 2. Mild, diffuse cerebral volume loss. 3. Mild periventricular and subcortical white matter chronic microvascular ischemic change. 4. No abnormal intracranial mass or mass effect. 5. No areas of acute or chronic infarction. Dictated by: Susana Awan MD, PhD on 08/05/2020 at 12:48 Approved by: Susana Awan MD, PhD on 08/05/2020 at 12:52
--- NOTE | 2020-08-05 | DI.MG.S_ITS ---
BILATERAL DIGITAL SCREENING MAMMOGRAM 3D/2D WITH CAD: 08/05/2020 CLINICAL: Routine screening. Family history of breast cancer. Comparison is made to exams dated: 07/20/2019 mammogram, 10/15/2018 mammogram, and 05/20/2017 mammogram - [facility]. The tissue of both breasts is heterogeneously dense. This may lower the sensitivity of mammography. Current study was also evaluated with a Computer Aided Detection (CAD) system. No significant masses, calcifications, or other findings are seen in either breast. There has been no significant interval change. IMPRESSION: NEGATIVE There is no mammographic evidence of malignancy. A 1 year screening mammogram is recommended. This exam was interpreted at Station ID: [id number]. NOTE: For mammograms, a report in lay terms will be sent to the patient. Approximately 15% of breast malignancies will not be visualized mammographically. In the management of a palpable breast mass, a negative mammogram must not discourage biopsy of a clinically suspicious lesion. Electronically Signed By: Urszula sung/tish:08/05/2020 12:34:28 letter sent: Normal Exam ACR BI-RADS Category 1: Negative [id number]
== END ==
PROVIDERS: PCP Naturopath; Referring Provider Naturopath; Visit Provider Naturopath
DX: R41.9 Unspecified symptoms and signs involving cognitive functions and awareness (principal); Z12.31 Encounter for screening mammogram for malignant neoplasm of breast; Z80.3 Family history of malignant neoplasm of breast
CPT/HCPCS: 70551; 77063; 77067

== ENCOUNTER 2020-11-02 18:40 | Emergency (ER) | payer OTHER, SELFPAY ==
[2020-11-02] VITALS (7 sets, daily range): BP systolic 144–162; BP diastolic 75–83; PULSE 58–64; RESP 16–25; O2SAT 93–97
--- NOTE | 2020-11-02 18:56 | DI.RAD.S_ITS ---
PROCEDURE: XR CHEST 1V INDICATIONS: chest pain TECHNIQUE: One view of the chest was acquired. COMPARISON: [facility], CR, XR CHEST 1V, 09/27/2019, 17:01. FINDINGS: Surgical changes and devices: None. Lungs and pleura: Lungs are clear. No pleural effusions or pneumothorax. Mediastinum: Mediastinal contours appear normal. Heart size is normal. Bones and chest wall: No suspicious bony lesions. Overlying soft tissues appear unremarkable. IMPRESSION: No acute cardiopulmonary process demonstrated radiographically. Dictated by: Jone Nam M.D. on 11/02/2020 at 19:20 Approved by: Jone Nam M.D. on 11/02/2020 at 19:21
[2020-11-02 19:11] LABS: Hematocrit 43.8 % (36-46); Hemoglobin 14.9 g/dL (12.0-16.0); Mean Corpuscular HGB Conc 34.1 % (30-36); Mean Corpuscular Hemoglobin 30.4 PG (26-34); Mean Corpuscular Volume 89.1 fL (80-100); Platelet Count 228 X10^3/uL (150-400); Red Blood Cell Count 4.92 X10^6/uL (4.0-5.2); Red Cell Distribution Width 13.2 % (11.6-14.8); White Blood Cell Count 7.6 X10^3/uL (4.5-11.0)
[2020-11-02 19:13] LABS: Add Manual Diff / Slide Review YES
[2020-11-02 19:22] LABS: Alanine Aminotransferase 31 IU/L (<35); Albumin 4.5 g/dL (3.5-5.0); Albumin Globulin Ratio 1.5 (1.0-2.8); Alkaline Phosphatase 76 U/L (38-126); Aspartate Aminotransferase 25 IU/L (14-36); BUN Creatinine Ratio 33.3 (6-22); Bilirubin Total 0.6 mg/dL (0.2-1.3); Blood Urea Nitrogen 19 mg/dL (7-17); Calcium 9.6 mg/dL (8.4-10.2); Carbon Dioxide 24 mmol/L (22-32); Chloride 105 mmol/L (98-107); Creatine Kinase 55 U/L (30-135); Estimated Glomerular Filt Rate > 60.0 mL/min (>60); Globulin 3.1 g/dL (1.7-4.1); Glucose 99 mg/dL (80-110); HEMOLYSIS 34 (0-50); Lipase 117 U/L (23-300); Sodium 138 mmol/L (137-145); Total Protein 7.6 g/dL (6.3-8.2)
--- NOTE | 2020-11-02 19:22 | ED_ITS ---
HPI - Chest Pain General Chief Complaint: Chest Pain Stated Complaint: chest pain Time Seen by Provider: 11/02/20 19:19 Source: patient Mode of arrival: Ambulatory Limitations: no limitations History of Present Illness HPI narrative: The patient presents with complaints of left upper chest pain, going on for over 1 week. The pain is more severe today, as bad as ever been. The pain does not radiate. She has no neck pain, back pain or arm pain. She has no dyspnea. She has no palpitations. She has no history of cardiac disease. She has recently been evaluated by her PCM for nausea and dizziness. She has none of those symptoms at this time. She is being treated for hyperlipidemia. The patient repeatedly insists she has heart pain, although I am telling her EKG and labs are normal. She denies recent illness. She has had no cough, dyspnea, headache, sore throat or fever. Her appetite is normal. She has no nausea, vomiting, or diarrhea. She denies urinary symptoms. Related Data Home Medications Medication Instructions Recorded Confirmed simvastatin 10 mg tablet 10 mg PO DAILY 10/11/20 10/11/20 Allergies Allergy/AdvReac Type Severity Reaction Status Date / Time epinephrine AdvReac Unknown INCREASED Verified 10/11/20 16:16 HEART RATE Review of Systems Review of Systems ROS Unobtainable: All systems reviewed & are unremarkable except as noted in HPI and below Constitutional Constitutional: Denies body ache(s), Denies chills, Denies difficulty sleeping, Denies fever(s) and Denies headache(s) Eyes Eyes: Denies change in vision ENT Ears, Nose, Mouth, and Throat: Denies vertigo, Denies dizziness, Denies headache(s) and Denies sore throat Cardiovascular Cardiovascular: Reports as per HPI, Reports chest pain and Denies dyspnea Respiratory Respiratory: Denies chest congestion, Denies cough, Denies hemoptysis and Denies dyspnea Gastrointestinal Gastrointestinal: Denies abdominal pain, Denies diarrhea, Denies nausea and Denies vomiting Genitourinary Genitourinary: Denies dysuria Genitourinary: Denies dysuria Musculoskeletal Musculoskeletal: Denies back pain and Denies arthralgias Integumentary/Breasts Skin/Breast: Denies erythema, Denies rash and Denies wounds Neurologic Neurologic: Denies confusion, Denies vertigo, Denies dizziness and Denies headache(s) Psychiatric Psychiatric: Reports anxiety and Denies confusion Patient History Medical History Hyperlipidemia (11/02/14) Rosacea (10/20/14) Surgical History Status post appendectomy Status post delivery Status post cholecystectomy (09/15/03) Status post hysterectomy Family History Brother Age: 72 Heart disease Pacemaker Obesity Mother Hypertension High cholesterol Father Obesity Mother Obesity Social History other: The patient does not smoke cigarettes or chew tobacco drink alcohol or use Smoking Status: Never smoker Smoking Status: Never smoker Exam Initial Vital Signs Initial Vital Signs: Vital Signs Pulse Rate 63 11/02/20 19:19 Respiratory Rate 23 11/02/20 19:19 Pulse Oximetry 97 11/02/20 19:19 Const General: cooperative, healthy appearing, well developed, well groomed and anxious HENSC Mouth: oral mucosae normal Throat: posterior oropharynx normal Eyes General: appearance normal, both eyes and all related structures Eyelids: eyelids normal Conjunctivae: conjunctivae normal Sclera: sclerae normal Pupils: PERRL EOM: EOM intact bilaterally Neck Neck: No lymphadenopathy, No tender and No JVD Chest Other: Tenderness in the left, upper anterior chest. Tenderness reproduced with palpation. Resp Effort & Inspection: normal respiratory effort and able to speak in complete sentences Auscultation: clear to auscultation bilaterally, no rales, no rhonchi and no wheezes Cardio Rate: regular rate Rhythm: regular rhythm Heart Sounds: S1 normal, S2 normal, no click, no gallops, no murmurs and no rubs Pulses: normal peripheral pulses GI Inspection: non-distended Palpation: soft, no hepatosplenomegaly, No guarding and No tender Auscultation: normal bowel sounds Back/Spine/Pelvis Back: No CVA tenderness Skin General: no rashes or lesions noted, No jaundice and No petechiae Rashes: no rashes Neuro General: patient alert, patient oriented x3, gait normal and no focal motor deficits Speech: speech normal Extrem General: full ROM, no pedal edema and no calf tenderness Psych Affect: anxious affect Course Course Course Narrative: The patient's workup has benign, EKG is normal and reassuring. Chest x-ray and labs are reassuring. Toradol was alleviated with Toradol and Advil. It is noted she has blood pressures in the 140-160 range systolic. We discussed chest wall strain, we discussed follow-up with her doctor to re-gaurav luate her blood pressure. She is advised to return the ER if symptoms escalate. Orders Ordered: ED Orders 11/02/20 18:56 XR chest 1V Stat 11/02/20 19:00 Complete Blood Count AUTO DIFF Stat Comprehensive Metabolic Panel Stat Lipase Stat Troponin & CK Cardiac Panel Stat 11/02/20 19:27 D Dimer Stat Partial Thromboplastin Time Stat Prothrombin Time INR Stat Discontinued Medications Ketorolac Tromethamine (Ketorolac 60 Mg/2 Ml Vial) 15 mg IV NOW ONE Stop: 11/02/20 19:55 Last Admin: 11/02/20 20:15 Dose: 15 mg Documented by: PANKAJ Lorazepam (Lorazepam 0.5 Mg Tablet) 0.5 mg PO NOW ONE Stop: 11/02/20 20:57 Last Admin: 11/02/20 21:05 Dose: 0.5 mg Documented by: PANKAJ Vital Signs Vital signs: Vital Signs - 8 hr 11/02/20 19:19 11/02/20 19:30 11/02/20 20:00 Pulse Rate 63 58 L 60 Respiratory Rate 23 25 H 18 Blood Pressure 146/75 H 152/76 H Pulse Oximetry 97 96 95 11/02/20 20:30 11/02/20 21:00 11/02/20 21:30 Pulse Rate 64 60 61 Respiratory Rate 19 17 17 Blood Pressure 161/83 H 162/77 H 155/80 H Pulse Oximetry 93 95 95 11/02/20 22:00 Pulse Rate 62 Respiratory Rate 16 Blood Pressure 144/76 H Pulse Oximetry 95 MDM - Chest Pain Lab Data Result diagrams: 11/02/20 19:00 11/02/20 19:00 Labs: Lab Results 11/02/20 11/02/20 11/02/20 Range/Units 19:00 19:00 19:27 WBC 7.6 (4.5-11.0) X10^3/uL RBC 4.92 (4.0-5.2) X10^6/uL Hgb 14.9 (12.0-16.0) g/dL Hct 43.8 (36-46) % MCV 89.1 (80-100) fL MCH 30.4 (26-34) PG MCHC 34.1 (30-36) % RDW 13.2 (11.6-14.8) % Plt Count 228 (150-400) X10^3/uL Neut % (Auto) Not Reportable Lymph % (Auto) Not Reportable Coles % (Auto) Not Reportable Eos % (Auto) Not Reportable Baso % (Auto) Not Reportable Lymph # (Auto) Not Reportable Coles # (Auto) Not Reportable Baso # (Auto) Not Reportable Total Counted 100 Seg Neutrophils % 34.0 L (38-70) % Lymphocytes % (Manual) 45.0 (25-45) % Atypical Lymphs % 2.0 H ( - 0) % Monocytes % (Manual) 15.0 H (2-11) % Eosinophils % (Manual) 2.0 (2-4) % Basophils % (Manual) 2.0 H (0-1) % Neutrophils # (Manual) 2584 L (2071-1265) /uL Platelet Estimate Adequate on smear RBC Morphology Normal morphology PT 11.2 (10.1-12.7) SECONDS INR 1.0 (0.9-1.3) APTT 32 (26.4-36.2) SECONDS D-Dimer (<230) ng/mL Sodium 138 (137-145) mmol/L Potassium 4.0 (3.4-5.1) mmol/L Chloride 105 (98-107) mmol/L Carbon Dioxide 24 (22-32) mmol/L BUN 19 H (7-17) mg/dL Creatinine 0.57 (0.52-1.04) mg/dL Estimated GFR > 60.0 (>60) mL/min BUN/Creatinine Ratio 33.3 H (6-22) Glucose 99 (80-110) mg/dL Calcium 9.6 (8.4-10.2) mg/dL Total Bilirubin 0.6 (0.2-1.3) mg/dL AST 25 (14-36) IU/L ALT 31 (<35) IU/L Alkaline Phosphatase 76 (38-126) U/L Total Creatine Kinase 55 (30-135) U/L CK-MB (CK-2) TNP CK-MB (CK-2) Rel Index TNP Troponin I < 0.012 (0.01-0.034) ng/mL Total Protein 7.6 (6.3-8.2) g/dL Albumin 4.5 (3.5-5.0) g/dL Globulin 3.1 (1.7-4.1) g/dL Albumin/Globulin Ratio 1.5 (1.0-2.8) Lipase 117 (23-300) U/L 11/02/20 Range/Units 19:27 WBC (4.5-11.0) X10^3/uL RBC (4.0-5.2) X10^6/uL Hgb (12.0-16.0) g/dL Hct (36-46) % MCV (80-100) fL MCH (26-34) PG MCHC (30-36) % RDW (11.6-14.8) % Plt Count (150-400) X10^3/uL Neut % (Auto) Lymph % (Auto) Coles % (Auto) Eos % (Auto) Baso % (Auto) Lymph # (Auto) Coles # (Auto) Baso # (Auto) Total Counted Seg Neutrophils % (38-70) % Lymphocytes % (Manual) (25-45) % Atypical Lymphs % ( - 0) % Monocytes % (Manual) (2-11) % Eosinophils % (Manual) (2-4) % Basophils % (Manual) (0-1) % Neutrophils # (Manual) (0824-3667) /uL Platelet Estimate RBC Morphology PT (10.1-12.7) SECONDS INR (0.9-1.3) APTT (26.4-36.2) SECONDS D-Dimer < 200 (<230) ng/mL Sodium (137-145) mmol/L Potassium (3.4-5.1) mmol/L Chloride (98-107) mmol/L Carbon Dioxide (22-32) mmol/L BUN (7-17) mg/dL Creatinine (0.52-1.04) mg/dL Estimated GFR (>60) mL/min BUN/Creatinine Ratio (6-22) Glucose (80-110) mg/dL Calcium (8.4-10.2) mg/dL Total Bilirubin (0.2-1.3) mg/dL AST (14-36) IU/L ALT (<35) IU/L Alkaline Phosphatase (38-126) U/L Total Creatine Kinase (30-135) U/L CK-MB (CK-2) CK-MB (CK-2) Rel Index Troponin I (0.01-0.034) ng/mL Total Protein (6.3-8.2) g/dL Albumin (3.5-5.0) g/dL Globulin (1.7-4.1) g/dL Albumin/Globulin Ratio (1.0-2.8) Lipase (23-300) U/L Imaging Data Chest x-ray: Radiologist's Impression: No acute cardiopulmonary disease. ECG Data Attestation: I personally reviewed and interpreted this ECG as follows: (Normal sinus rhythm rate 63 being p.m.. Normal intervals. No ectopy. No acute ST T wave changes. Normal study.) Discharge Plan Departure Patient Disposition: Home Clinical Impression: Acute chest wall pain, Elevated blood pressure reading Instructions: Essential Hypertension, DI for Atypical Chest Pain Activity Restrictions/Additional Instructions: Your cardiac workup was normal, there is no evidence of acute cardiac problems. The pain seems to be coming from your left pectoralis major muscle. Take Tyleno l every 4 hours, or Advil every 6 hours as needed for pain. Your blood pressure is a little high here in the ER tonight, not high enough to take immediate action. You should recheck with your doctor to see how your blood pressure is doing outside of an ER setting. Return the ER if you experience worsening chest pain. Prescriptions: No Action simvastatin 10 mg tablet 10 mg PO DAILY RF: 0 Referrals: Deisy Cam ND [Primary Care Provider] -
[2020-11-02 19:31] LABS: Neutrophils Absolute Manual 2584 /uL (3000-5900); Platelet Estimate Adequate on smear; RBC Morphology Normal Morphology; Total Cells Counted 100
[2020-11-02 19:32] LABS: Troponin I < 0.012 ng/mL (0.01-0.034)
[2020-11-02 19:39] LABS: Prothrombin Time 11.2 SECONDS (10.1-12.7)
[2020-11-02 19:42] LABS: PTT Partial Thromboplastin Tim 32 SECONDS (26.4-36.2)
[2020-11-02 19:54] LABS: D Dimer < 200 ng/mL (<230)
[2020-11-02] MEDS: KETOROLAC 60 MG/2 ML VIAL 15 MG IV (20:15)
[2020-11-02] MEDS: LORazepam 0.5 MG TABLET PO (21:05)
== END 2020-11-02 22:15 | disposition home or self-care (01) ==
PROVIDERS: Emergency Provider Emergency Medicine; PCP Naturopath
DX: R07.89 Other chest pain (principal); R03.0 Elevated blood-pressure reading, without diagnosis of hypertension
CPT/HCPCS: 36415; 71045; 80053; 82550; 83690; 84484; 85007; 85025; 85379; 85610; 85730; 93005; 93010; 96374; 96375; 99284; J1885

== ENCOUNTER → 2021-08-08 08:56 | Outpatient (CLI) | payer MEDICARE, OTHER, SELFPAY ==
--- NOTE | 2021-08-08 | DI.MG.S_ITS ---
BILATERAL DIGITAL SCREENING MAMMOGRAM 3D/2D WITH CAD: 08/08/2021 CLINICAL: Routine screening. Family history of breast cancer. Comparison is made to exams dated: 08/05/2020 mammogram, 07/20/2019 mammogram, 11/10/2018 mammogram, and 10/15/2018 mammogram - [facility]. The tissue of both breasts is heterogeneously dense. This may lower the sensitivity of mammography. Current study was also evaluated with a Computer Aided Detection (CAD) system. No significant masses, calcifications, or other findings are seen in either breast. There has been no significant interval change. IMPRESSION: NEGATIVE There is no mammographic evidence of malignancy. A 1 year screening mammogram is recommended. This exam was interpreted at Station ID: [id number]. NOTE: For mammograms, a report in lay terms will be sent to the patient. Approximately 15% of breast malignancies will not be visualized mammographically. In the management of a palpable breast mass, a negative mammogram must not discourage biopsy of a clinically suspicious lesion. Electronically Signed By: Chet ortega/tish:08/08/2021 10:08:05 letter sent: Normal Exam ACR BI-RADS Category 1: Negative 3341F
== END ==
PROVIDERS: PCP Naturopath; Referring Provider Nurse Practitioner Family; Visit Provider Nurse Practitioner Family
DX: Z12.31 Encounter for screening mammogram for malignant neoplasm of breast (principal); Z80.3 Family history of malignant neoplasm of breast
CPT/HCPCS: 77063; 77067

== ENCOUNTER → 2022-08-09 13:07 | Outpatient (CLI) | payer MEDICARE, OTHER, SELFPAY ==
--- NOTE | 2022-08-09 13:09 | DI.MG.S_ITS ---
BILATERAL DIGITAL SCREENING MAMMOGRAM 3D/2D WITH CAD: 08/09/2022 CLINICAL: Routine screening. Family history of breast cancer. Comparison is made to exams dated: 08/08/2021 mammogram, 08/05/2020 mammogram, and 07/20/2019 mammogram - [facility]. Both breasts are heterogeneously dense, which may obscure small masses (category c / 51-75% glandular tissue). Current study was also evaluated with a Computer Aided Detection (CAD) system. No significant masses, calcifications, or other findings are seen in either breast. There has been no significant interval change. IMPRESSION: NEGATIVE There is no mammographic evidence of malignancy. A 1 year screening mammogram is recommended. Based on the Tyrer Cuzick model (a risk assessment model) the patient's lifetime risk is 9.1% and her 10 year risk is 4.6%. According to the ACR, ACS, and NCCN guidelines, an annual breast MRI exam along with mammogram is recommended if the patient's lifetime risk is 20% or greater. This exam was interpreted at Station ID: [id number]. NOTE: For mammograms, a report in lay terms will be sent to the patient. Approximately 15% of breast malignancies will not be visualized mammographically. In the management of a palpable breast mass, a negative mammogram must not discourage biopsy of a clinically suspicious lesion. Electronically Signed By: Jone Nam M.D., jr/tish:08/09/2022 15:06:59 letter sent: Normal Exam ACR BI-RADS Category 1: Negative 3341F
== END ==
PROVIDERS: PCP Nurse Practitioner Family; Referring Provider Nurse Practitioner Family; Visit Provider Nurse Practitioner Family
DX: Z12.31 Encounter for screening mammogram for malignant neoplasm of breast (principal); Z80.3 Family history of malignant neoplasm of breast
CPT/HCPCS: 77063; 77067

== ENCOUNTER → 2023-09-05 13:57 | Outpatient (CLI) | payer MEDICARE, SELFPAY ==
--- NOTE | 2023-09-05 13:59 | DI.MG.S_ITS ---
BILATERAL DIGITAL SCREENING MAMMOGRAM 3D/2D WITH CAD: 09/05/2023 CLINICAL: Routine screening. Family history of breast cancer. Comparison is made to exams dated: 08/09/2022 mammogram, 08/08/2021 mammogram, and 08/05/2020 mammogram - [facility]. Both breasts are heterogeneously dense, which may obscure small masses (category c / 51-75% glandular tissue). Current study was also evaluated with a Computer Aided Detection (CAD) system. No significant masses, calcifications, or other findings are seen in either breast. There has been no significant interval change. IMPRESSION: NEGATIVE There is no mammographic evidence of malignancy. A 1 year screening mammogram is recommended. Based on the Tyrer Cuzick model (a risk assessment model) the patient's lifetime risk is 8.6% and her 10 year risk is 4.5%. According to the ACR, ACS, and NCCN guidelines, an annual breast MRI exam along with mammogram is recommended if the patient's lifetime risk is 20% or greater. This exam was interpreted at Station ID: [id number]. NOTE: For mammograms, a report in lay terms will be sent to the patient. Approximately 15% of breast malignancies will not be visualized mammographically. In the management of a palpable breast mass, a negative mammogram must not discourage biopsy of a clinically suspicious lesion. Electronically Signed By: Yinka wynne/tish:09/05/2023 14:40:07 letter sent: Normal Exam ACR BI-RADS Category 1: Negative 3341F
== END ==
PROVIDERS: PCP Nurse Practitioner Family; Referring Provider Nurse Practitioner Family; Visit Provider Nurse Practitioner Family
DX: Z12.31 Encounter for screening mammogram for malignant neoplasm of breast (principal); Z80.3 Family history of malignant neoplasm of breast; R92.333 Mammographic heterogeneous density, bilateral breasts
CPT/HCPCS: 77063; 77067

== ENCOUNTER 2025-05-12 16:26 | Emergency (ER) | payer MEDICARE, SELFPAY ==
[2025-05-12 16:40] VITALS: BP 134/85; PULSE 85; RESP 17; TEMP 36.9; O2SAT 93; BMI 29.1
--- NOTE | 2025-05-12 17:00 | EKG_ITS ---
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
--- NOTE | 2025-05-12 17:19 | DI.CT.S_ITS ---
PROCEDURE: CT HEAD/BRAIN WO CON INDICATIONS: Right-sided weakness TECHNIQUE: Noncontrast 4.5 mm thick angled axial sections acquired from the foramen magnum to the vertex, with coronal and sagittal reformats. For radiation dose reduction, the following was used: automated exposure control, adjustment of mA and/or kV according to patient size. COMPARISON: None. FINDINGS: Image quality: Diagnostic. CSF spaces: Basal cisterns are patent. No extra-axial fluid collections. Ex vacuo dilatation of the frontal horns and temporal horns of the lateral ventricles, left greater than right. Brain: No intracranial bleeds or mass effect. There is severe cerebral volume loss, with resultant ventricular and sulcal prominence. There are moderate to severe periventricular and deep white matter chronic small vessel ischemic changes. There is intracranial internal carotid artery atherosclerosis. Skull and face: Calvarium and visualized facial bones appear intact, without suspicious lesions. Sinuses: Visualized sinuses and mastoids are clear. IMPRESSION: No acute intracranial pathology. Severe cerebral volume loss and moderate to severe small vessel ischemic change. Dictated by: Aayush Yadav M.D. on 05/12/2025 at 18:04 Approved by: Aayush Yadav M.D. on 05/12/2025 at 18:06
--- NOTE | 2025-05-12 17:19 | DI.CT.S_ITS ---
PROCEDURE: CT ANGIO HEAD AND NECK INDICATIONS: Right-sided weakness TECHNIQUE: After the administration of intravenous contrast, 1 mm thick sections acquired from the aortic arch through the [place]. 3-dimensional evarkhb-gulhssuiq-mmffaquirg (MIP) and/or volume rendering reformats were acquired of the central intracranial vasculature and neck separately. For radiation dose reduction, the following was used: automated exposure control, adjustment of mA and/or kV according to patient size. COMPARISON: [facility], CT, CT HEAD/BRAIN WO CON, 05/12/2025, 17:43. FINDINGS: Image quality: Diagnostic. Cerebral CT Angiogram: Internal carotid arteries: No acute findings. Intracranial ICA are patent with no significant stenosis. No occlusion. No aneurysm. Anterior cerebral arteries: Unremarkable. No significant stenosis. No occlusion. No aneurysm. Middle cerebral arteries: Unremarkable. No significant stenosis. No occlusion. No aneurysm. Posterior cerebral arteries: Unremarkable. No significant stenosis. No occlusion. No aneurysm. Basilar artery: Unremarkable. No significant stenosis. No occlusion. No aneurysm. Vertebral arteries: Unremarkable as visualized. Dural venous sinuses: Unremarkable given phase of enhancement. Other: Severe volume loss and moderate to severe small vessel ischemic change. Neck CT Angiogram: Internal carotid arteries: Unremarkable. No significant stenosis. No dissection or occlusion. Common carotid arteries: Unremarkable. No significant stenosis. No dissection or occlusion. External carotid arteries: Unremarkable. No occlusion. Vertebral arteries: Unremarkable. No significant stenosis. No dissection or occlusion. Aortic Arch and Mediastinum: Partially visualized aortic arch unremarkable without evidence of aneurysm. Origins of the great vessels unremarkable. Other: Arterial phase soft tissues of the neck and chest are unremarkable. IMPRESSION: No significant intracranial arterial abnormality is seen. No significant abnormality is seen within the arteries of the neck. Any quantitative measurements of stenosis were performed using NASCET criteria. Dictated by: Aayush Yadav M.D. on 05/12/2025 at 18:06 Approved by: Aayush Yadav M.D. on 05/12/2025 at 18:09
--- NOTE | 2025-05-12 17:24 | ED_ITS ---
HPI - Neuro Symptoms/Deficit <Julio César Tam MD - Last Filed: 05/13/25 08:57> General Chief Complaint: Neuro Symptoms/Deficit Stated Complaint: possible stroke yesterday has dementia Time Seen by Provider: 05/12/25 17:17 Source: family Mode of arrival: Wheelchair History of Present Illness HPI Narrative: Patient brought here by from home. Patient had constant right leg weakness from 5:00 p.m. last night until 12 noon today. No prior history of heart attack strokes diabetes high blood pressure or hypercholesteremia. Patient has frontal temporal dementia. Patient is a very poor historian. Is very difficult with following commands at baseline. states no recent illness no fever chills cough cold or congestion. No fall or injury. On Anticoagulants: No Related Data Home Medications ?Medication ?Instructions ?Recorded ?Confirmed simvastatin 10 mg tablet 10 mg PO DAILY 10/11/2009/20 Allergies Allergy/AdvReac Type Severity Reaction Status Date / Time No Known Drug Allergies Allergy Verified 05/12/25 17:11 Review of Systems <Julio César Tam MD - Last Filed: 05/13/25 08:57> Review of Systems Narrative: GENERAL: Negative chills, fatigue, malaise, fever, sweats. HEENT: Negative sinus pain, ear pain, sore throat RESPIRATORY: Negative dyspnea, cough CARDIOVASCULAR: Negative chest pain, palpitations GASTROINTESTINAL: Negative vomiting, nausea, abdominal pain : Negative dysuria, frequency, hematuria MUSCULOSKELETAL: Negative muscle or bony pain SKIN: Negative rash, skin lesions NEUROLOGIC: Positive weakness, negative slurred speech negative facial droop negative numbness ROS Unobtainable: All systems reviewed & are unremarkable except as noted in HPI and below Hematologic/Lymphatic On Anticoagulants: No Patient History <Julio César Tam MD - Last Filed: 05/13/25 08:57> Medical History (Updated 05/12/25 @ 19:14 by Nell Telles DO) Nocturnal hypoxemia History of snoring Obstructive sleep apnea, adult Hyperlipidemia (11/02/14) Rosacea (10/20/14) Surgical History Status post cholecystectomy (09/15/03) Status post hysterectomy Status post delivery Status post appendectomy Family History Brother Age: 72 Heart disease Pacemaker Obesity Mother Hypertension High cholesterol Father Obesity Mother Obesity Social History other: The patient does not smoke cigarettes or chew tobacco drink alcohol or use Exam <Julio César Tam MD - Last Filed: 05/13/25 08:57> Narrative Exam Narrative: GENERAL: in no distress, not toxic not dyspneic HEAD: Normocephalic. EYES: Pupils equal round ENT: Mucous membranes moist. NECK: Trachea midline. CARDIOVASCULAR: Regular rate and rhythm RESPIRATORY: Clear to auscultation. Breath sounds equal bilaterally. No wheezes, rales, or rhonchi. GASTROINTESTINAL: Abdomen soft, non-tender EXTREMITIES: No gross deformities. BACK: No flank tenderness. NEURO: Patient behaving at baseline according to . Is awake and alert. However very poor historian. And very difficult with following commands which is not unusual according to .. 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 Able to lift each leg off the bed. SKIN: Warm and dry PSYCH: Not anxious, is cooperative Initial Vital Signs Initial Vital Signs: Vital Signs Temperature 98.5 F 05/12/25 16:40 Pulse Rate 85 05/12/25 16:40 Respiratory Rate 17 05/12/25 16:40 Blood Pressure 134/85 05/12/25 16:40 Pulse Oximetry 93 05/12/25 16:40 Oxygen Delivery Method Room Air 05/12/25 16:40 <Nell Telles DO - Last Filed: 05/13/25 00:56> Initial Vital Signs Initial Vital Signs: Vital Signs Temperature 98.5 F 05/12/25 16:40 Pulse Rate 85 05/12/25 16:40 Respiratory Rate 17 05/12/25 16:40 Blood Pressure 134/85 05/12/25 16:40 Pulse Oximetry 93 05/12/25 16:40 Oxygen Delivery Method Room Air 05/12/25 16:40 Scores <Julio César Tam MD - Last Filed: 05/13/25 08:57> NIH Stroke Scale Level of Conciousness: Alert, keenly responsive Ask month/age: Answers neither question correctly, aphasic, stuporous, coma Open/close eyes, close hand: Performs one task correctly Best gaze horizontal: Normal Visual hendrix: No visual loss Facial palsy: Normal symetrical movement Left arm drift: No drift for full 10 sec Right arm drift: No drift for full 10 sec Left leg drift: Drifts down, not to bed Right leg drift: Drifts down, not to bed Limb ataxia: Absent Sensory on face/arms/legs: Normal, no sensory loss Best language: Mild to moderate, slurs some words Dysarthria: Normal Extinction or inattention: No abnormality Total NIH Stroke scale score: 6 <Nell Telles DO - Last Filed: 05/13/25 00:56> NIH Stroke Scale Total NIH Stroke scale score: 6 Course <Julio César Tam MD - Last Filed: 05/13/25 08:57> Orders Ordered: Discontinued Medications Aspirin (Aspirin 81 Mg Chew Tab) 324 mg PO NOW ONE Stop: 05/12/25 19:15 Last Admin: 05/12/25 19:19 Dose: 324 mg Documented By: AB Sodium Chloride (Normal Saline 0.9%) 500 mls @ 1,000 mls/hr IV BOLUS ONE Stop: 05/12/25 17:53 Last Infusion: 05/12/25 18:44 Dose: Infused Documented By: Admin: 05/12/25 18:06 Dose: 1,000 mls/hr Documented By: HAL Vital Signs Vital signs: Vital Signs - 8 hr 05/12/25 17:57 05/12/25 17:59 05/12/25 17:59 Pulse Rate 91 H Respiratory Rate 17 Blood Pressure 165/84 H Pulse Oximetry 93 94 Oxygen Delivery Method Room Air 05/12/25 19:23 Pulse Rate 92 H Respiratory Rate 18 Blood Pressure Pulse Oximetry 95 Oxygen Delivery Method Room Air <Nell Telles DO - Last Filed: 05/13/25 00:56> Orders Ordered: Discontinued Medications Aspirin (Aspirin 81 Mg Chew Tab) 324 mg PO NOW ONE Stop: 05/12/25 19:15 Last Admin: 05/12/25 19:19 Dose: 324 mg Documented By: AB Sodium Chloride (Normal Saline 0.9%) 500 mls @ 1,000 mls/hr IV BOLUS ONE Stop: 05/12/25 17:53 Last Infusion: 05/12/25 18:44 Dose: Infused Documented By: Admin: 05/12/25 18:06 Dose: 1,000 mls/hr Documented By: HAL Vital Signs Vital signs: Vital Signs - 8 hr 05/12/25 17:57 05/12/25 17:59 05/12/25 17:59 Pulse Rate 91 H Respiratory Rate 17 Blood Pressure 165/84 H Pulse Oximetry 93 94 Oxygen Delivery Method Room Air 05/12/25 19:23 Pulse Rate 92 H Respiratory Rate 18 Blood Pressure Pulse Oximetry 95 Oxygen Delivery Method Room Air MDM - Neuro Symptoms/Deficit <Julio César Tam MD - Last Filed: 05/13/25 08:57> Lab Data 05/12/25 17:44 05/12/25 17:44 Labs: Lab Results 05/12/25 Range/Units 17:44 WBC 9.1 (4.5-11.0) X10^3/uL RBC 5.30 H (4.0-5.2) X10^6/uL Hgb 16.4 H (12.0-16.0) g/dL Hct 47.7 H (36-46) % MCV 90.0 (80-100) fL MCH 30.9 (26-34) PG MCHC 34.3 (30-36) % RDW 13.5 (11.6-14.8) % Plt Count 265 (150-400) X10^3/uL Neut % (Auto) 58.2 (50-75) % Lymph % (Auto) 28.8 (25-40) % Carter % (Auto) 9.4 (3-14) % Eos % (Auto) 3.4 (2-4) % Baso % (Auto) 0.2 (0-2) % Neut # (Auto) 5300 (7195-8079) /uL Lymph # (Auto) 2600 (5182-3594) /uL Carter # (Auto) 800 (0-900) /uL Eos # (Auto) 300 (0-450) /uL Baso # (Auto) 0 (0-100) /uL PT 11.1 (9.4-12.5) SECONDS INR 1.0 (0.9-1.3) APTT 30 (25.1-36.5) SECONDS Sodium 143 (137-145) mmol/L Potassium 3.7 (3.4-5.1) mmol/L Chloride 106 (98-107) mmol/L Carbon Dioxide 26 (22-32) mmol/L BUN 16 (7-17) mg/dL Creatinine 0.82 (0.52-1.04) mg/dL Estimated GFR > 60 (>60) mL/min BUN/Creatinine Ratio 19.5 (6-22) Glucose 136 H (70-99) mg/dL Calcium 9.6 (8.4-10.2) mg/dL Total Bilirubin 0.9 (0.2-1.3) mg/dL AST 28 (14-36) IU/L ALT 34 (<35) IU/L Alkaline Phosphatase 91 (38-126) U/L Total Creatine Kinase 34 (30-135) U/L Troponin I < 0.012 (0.01-0.034) ng/mL Total Protein 7.8 (6.3-8.2) g/dL Albumin 4.7 (3.5-5.0) g/dL Globulin 3.1 (1.7-4.1) g/dL Albumin/Globulin Ratio 1.5 (1.0-2.8) MDM Narrative Medical decision making narrative: Patient brought here by from home. Patient had constant right leg weakness from 5:00 p.m. last night until 12 noon today. No prior history of heart attack strokes diabetes high blood pressure or hypercholesteremia. Patient has frontal temporal dementia. Patient is a very poor historian. Is very difficult with following commands at baseline. states no recent illness no fever chills cough cold or congestion. No fall or injury. MDM After history and exam, CBC CMP EKG PT INR PTT CT head CT angiogram head and neck normal saline urinalysis Differential considered: Includes but not limited to TIA stroke sciatica Medical records reviewed: No recent visit for this complaint Lab Test results independently reviewed as above. Pertinent findings: Independently reviewed EKG normal sinus rhythm rate [address]-elevation or depression Imaging studies independently reviewed: CT head CT angiogram head and neck Consultations: Re-evaluations: Discussion: 6:[address] Tam: Sign-out to Dr. Telles. Laboratory studies are pending. CT imaging pending. Diagnosis: Stroke Core Measures Exclusion Criteria TPA in CVA: Symptom Onset >3 or 4.5 Hours <Nell Telles, DO - Last Filed: 05/13/25 00:56> Lab Data Labs: Lab Results 05/12/25 Range/Units 17:44 WBC 9.1 (4.5-11.0) X10^3/uL RBC 5.30 H (4.0-5.2) X10^6/uL Hgb 16.4 H (12.0-16.0) g/dL Hct 47.7 H (36-46) % MCV 90.0 (80-100) fL MCH 30.9 (26-34) PG MCHC 34.3 (30-36) % RDW 13.5 (11.6-14.8) % Plt Count 265 (150-400) X10^3/uL Neut % (Auto) 58.2 (50-75) % Lymph % (Auto) 28.8 (25-40) % Carter % (Auto) 9.4 (3-14) % Eos % (Auto) 3.4 (2-4) % Baso % (Auto) 0.2 (0-2) % Neut # (Auto) 5300 (4383-3360) /uL Lymph # (Auto) 2600 (7585-8048) /uL Carter # (Auto) 800 (0-900) /uL Eos # (Auto) 300 (0-450) /uL Baso # (Auto) 0 (0-100) /uL PT 11.1 (9.4-12.5) SECONDS INR 1.0 (0.9-1.3) APTT 30 (25.1-36.5) SECONDS Sodium 143 (137-145) mmol/L Potassium 3.7 (3.4-5.1) mmol/L Chloride 106 (98-107) mmol/L Carbon Dioxide 26 (22-32) mmol/L BUN 16 (7-17) mg/dL Creatinine 0.82 (0.52-1.04) mg/dL Estimated GFR > 60 (>60) mL/min BUN/Creatinine Ratio 19.5 (6-22) Glucose 136 H (70-99) mg/dL Calcium 9.6 (8.4-10.2) mg/dL Total Bilirubin 0.9 (0.2-1.3) mg/dL AST 28 (14-36) IU/L ALT 34 (<35) IU/L Alkaline Phosphatase 91 (38-126) U/L Total Creatine Kinase 34 (30-135) U/L Troponin I < 0.012 (0.01-0.034) ng/mL Total Protein 7.8 (6.3-8.2) g/dL Albumin 4.7 (3.5-5.0) g/dL Globulin 3.1 (1.7-4.1) g/dL Albumin/Globulin Ratio 1.5 (1.0-2.8) MDM Narrative Medical decision making narrative: Patient brought here by from home. Patient had constant right leg weakness from 5:00 p.m. last night until 12 noon today. No prior history of heart attack strokes diabetes high blood pressure or hypercholesteremia. Patient has frontal temporal dementia. Patient is a very poor historian. Is very difficult with following commands at baseline. states no recent illness no fever chills cough cold or congestion. No fall or injury. MDM After history and exam, CBC CMP EKG PT INR PTT CT head CT angiogram head and neck normal saline urinalysis Differential considered: Includes but not limited to TIA stroke sciatica Medical records reviewed: No recent visit for this complaint Lab Test results independently reviewed as above. Pertinent findings: Independently reviewed EKG normal sinus rhythm rate [address]-elevation or depression Imaging studies independently reviewed: CT head CT angiogram head and neck Consultations: Re-evaluations: Discussion: 6:[address] Tam: Sign-out to Dr. Telles. Laboratory studies are pending. CT imaging pending. Diagnosis: 0 Dr. Telles patient signed out to me by Dr. Tam, seen evaluated patient myself. Has been is the primary historian patient appears comfortable not in any distress. Head CT no intracranial hemorrhage CT angio no large vessel occlusion Blood work has been reviewed CBC shows no leukocytosis no anemia CMP no electrolyte abnormality no ZEINAB glucose 136 Bilirubin liver enzymes within normal limit Troponin negative Long discussion with the about admission for TIA. Would need monitoring MRI and further testing. At this point he says he really does not want anymore testing wants comfort care only. He understands risk of having a stroke in the next 30-60 days. He is working on getting her in a long-term care facility. He would like her at home as long as possible. He just wants her comfortable. Reports that symptoms have resolved. Patient does not appear to be in any sort of distress Discharge Plan Departure Patient Disposition: Home Clinical Impression: Brain TIA Instructions: DI for Transient Ischemic Attack Activity Restrictions/Additional Instructions: *You have been diagnosed with probable TIA *What to do: At this time it is likely Ira had a mini stroke were symptoms resolve within 24 hours. Recommended admission with further testing. At this time I do recommend at least an aspirin 81 mg daily. *Continue to take medications as directed Aspirin 81 mg daily *Follow up with your primary care provider in 2-3 days or call [phone] Follow up with Neurology and primary care *Return to ER if you should have any new, worsening or concerning symptoms Prescriptions: No Action simvastatin 10 mg tablet 10 mg PO DAILY Referrals: Denia Morgan, [facility] [Primary Care Provider, Medical] Stand Alone Forms: Patient Portal/API
[2025-05-12 17:57] VITALS: PULSE 91; O2SAT 93
[2025-05-12 17:59] VITALS: BP 165/84; RESP 17; O2SAT 94
[2025-05-12 17:59] LABS: Add Manual Diff / Slide Review NO; Hematocrit 47.7 % (36-46); Hemoglobin 16.4 g/dL (12.0-16.0); Lymphocytes Absolute Auto 2600 /uL (1100-4500); Mean Corpuscular HGB Conc 34.3 % (30-36); Mean Corpuscular Hemoglobin 30.9 PG (26-34); Mean Corpuscular Volume 90.0 fL (80-100); Platelet Count 265 X10^3/uL (150-400)
[2025-05-12] MEDS: SODIUM CHLORIDE 0.9% 500 ML 1000 ML IV (18:06)
[2025-05-12 18:10] LABS: INR 1.0 (0.9-1.3); Prothrombin Time 11.1 SECONDS (9.4-12.5)
[2025-05-12 18:12] LABS: PTT Partial Thromboplastin Tim 30 SECONDS (25.1-36.5)
[2025-05-12 18:16] LABS: Alanine Aminotransferase 34 IU/L (<35); Albumin 4.7 g/dL (3.5-5.0); Albumin Globulin Ratio 1.5 (1.0-2.8); Alkaline Phosphatase 91 U/L (38-126); Blood Urea Nitrogen 16 mg/dL (7-17); Calcium 9.6 mg/dL (8.4-10.2); Carbon Dioxide 26 mmol/L (22-32); Chloride 106 mmol/L (98-107); Creatine Kinase 34 U/L (30-135); Estimated Glomerular Filt Rate > 60 mL/min (>60); Globulin 3.1 g/dL (1.7-4.1); Glucose 136 mg/dL (70-99); HEMOLYSIS < 15 (0-50); Potassium 3.7 mmol/L (3.4-5.1); Sodium 143 mmol/L (137-145); Total Protein 7.8 g/dL (6.3-8.2)
[2025-05-12 18:28] LABS: Troponin I < 0.012 ng/mL (0.01-0.034)
[2025-05-12] MEDS: ASPIRIN 81 MG CHEW TAB 324 MG PO (19:19)
[2025-05-12 19:23] VITALS: PULSE 92; RESP 18; O2SAT 95
== END 2025-05-12 19:24 | disposition home or self-care (01) ==
PROVIDERS: Emergency Medicine; Emergency Provider Emergency Medicine; PCP Nurse Practitioner Family
DX: G45.9 Transient cerebral ischemic attack, unspecified (principal); R29.706 NIHSS score 6
CPT/HCPCS: 36415; 70450; 70496; 70498; 80053; 82550; 84484; 85025; 85610; 85730; 93005; 96360; 99284; Q9967